=== PATIENT | male | born 1960 | race Hispanic/Latino ===

== ENCOUNTER 2018-08-04 14:44 | Inpatient (IN) | payer OTHER ==
[2018-08-04] MEDS ORDERED: Morphine 4 MG/ML VIAL IV ONE (16:30)
[2018-08-04] MEDS ORDERED: Oxycodone/Acetaminophen 5/325 mg Tab ONE (16:34)
[2018-08-04] MEDS ORDERED: Oxycodone/Acetaminophen 5/325 mg Tab PO STA (16:35)
--- NOTE | 2018-08-04 16:35 | ED PDOC ---
HPI: Abdomen Time Seen by Provider: 08/04/18 15:33 Chief Complaint (Nursing): Abdominal Pain Chief Complaint (Provider): Abdominal Pain History Per: Patient History/Exam Limitations: no limitations Onset/Duration Of Symptoms: Other (x3 weeks) Current Symptoms Are (Timing): Still Present Location Of Pain/Discomfort: RUQ Associated Symptoms: denies: Fever, Nausea, Vomiting, Diarrhea, Constipation Additional Complaint(s): 58 year old male presents to the ED complaining of abdominal pain. Patient reports right upper abdominal pain on and off for 10 years which has become constant over the past 3 weeks. He states he felt a ball in the RUQ in the past few days. Patient has a history of a hiatal hernia. Denies fever, nausea, vomiting, diarrhea, or constipation. He states he is here on business from [place]. His insurance company recommended a physician for him to see on Monday but patient was unable to wait until then secondary to pain. PMD: none provided Past Medical History Reviewed: Historical Data, Nursing Documentation, Vital Signs Vital Signs: Last Vital Signs Temp 99 F 08/04/18 15:27 Pulse 117 H 08/04/18 15:27 Resp 20 08/04/18 15:27 BP 120/70 08/04/18 15:27 Pulse Ox 100 08/04/18 15:27 - Medical History PMH: Diverticulitis, Hiatal Hernia - Surgical History Surgical History: No Surg Hx - Family History Family History: States: Unknown Family Hx - Social History Current smoker - smoking cessation education provided: No Alcohol: None Drugs: Denies - Home Medications Home Medications: Ambulatory Orders Medication Instructions Recorded Amino Acids [Amino Acid] 08/04/18 Tyrosine [l-Tyrosine] 08/04/18 - Allergies Allergies/Adverse Reactions: Allergies Allergy/AdvReac Type Severity Reaction Status Date / Time amoxicillin Allergy SWELLING Verified 08/04/18 18:58 antibiotics Allergy RASH Uncoded 08/04/18 15:27 Review of Systems ROS Statement: Except As Marked, All Systems Reviewed And Found Negative Constitutional: Negative for: Fever Gastrointestinal: Positive for: Abdominal Pain (right upper). Negative for: Nausea, Vomiting, Diarrhea, Constipation Physical Exam - Reviewed Nursing Documentation Reviewed: Yes Vital Signs Reviewed: Yes - Physical Exam Appears: Positive for: Non-toxic, No Acute Distress Head Exam: Positive for: ATRAUMATIC, NORMOCEPHALIC Skin: Positive for: Normal Color, Warm, Dry Eye Exam: Positive for: Normal appearance Neck: Positive for: Normal, Painless ROM Cardiovascular/Chest: Positive for: Regular Rate, Rhythm Respiratory: Positive for: Normal Breath Sounds. Negative for: Wheezing, Respiratory Distress Gastrointestinal/Abdominal: Positive for: Tenderness (of mass in RUQ), Mass (in the RUQ with tenderness). Negative for: Guarding, Rebound Extremity: Positive for: Normal ROM Neurologic/Psych: Positive for: Alert, Oriented. Negative for: Motor/Sensory Deficits - Laboratory Results Result Diagrams: 08/04/18 16:32 08/04/18 16:32 - ECG O2 Sat by Pulse Oximetry: 100 (RA) Pulse Ox Interpretation: Normal Medical Decision Making Medical Decision Making: Initial Impression: Abdominal pain; r/o mass Initial Plan: --CT abd/pelvis --ECG --CMP --Lipase stat --ED urine dipstick --CBC --PTT --Prothrombin time --Morphine 2mg IV --Oxycodone 1 tab PO --Urinalysis CLINICAL HISTORY: Right upper abdominal quadrant pain. TECHNIQUE: Multiple axial, coronal, sagittal CT images were obtained through the abdomen and pelvis after administration of oral and intravenous contrast material. Images were obtained before and after IV contrast administration. Omnipaque 300 95 ml was administered. Total DLP equals 941.83 mGy.cm. COMMENTS: In the right hepatic lobe, note is made of 18 x 14 x 11 cm encapsulated cystic mass demonstrating thick capsule measuring up to 6 mm and multiple internal septations. This may represent a hepatic abscess. There is inflammatory stranding noted in the vicinity. Aspiration biopsy is recommended. There is no intra or extrahepatic biliary ductal dilatation. The spleen is normal. The gallbladder is not identified with certainty. The pancreas is of normal contour and attenuation characteristics. There is no evidence of adrenal mass. Both kidneys demonstrate prompt and equal nephrograms. The kidneys are normal in size, shape, and configuration. There is no evidence of renal or ureteral mass. No renal or ureteral calculi are identified. There is no hydroureter or hydronephrosis. No evidence for appendicitis. There is no bowel wall thickening. No evidence for small or large bowel obstruction. There is no evidence of abdominal ascites or lymphadenopathy. There is scattered diverticulosis noted involving descending and sigmoid colon. There is no evidence of acute diverticulitis. There is no evidence of intrinsic or extrinsic bladder mass. There is no pelvic ascites or lymphadenopathy. The prostate gland is mildly enlarged. There is scarring versus atelectasis noted at the right lung base. There is an irregular nodule noted in the right middle lobe measuring approximately 9 x 7 mm. Consider followup with chest CT. There are no pleural effusions. Grade-1 anterolisthesis of L4 over L5 is present. IMPRESSION: 1. 18 cm right hepatic lobe encapsulated cystic mass demonstrating thick capsule and septations, which may represent a hepatic abscess. Aspiration biopsy is recommended. 2. The gallbladder is not identified with certainty. 3. Scattered diverticulosis involving descending and sigmoid colon. No evidence of acute diverticulitis. 4. Irregular nodule in the right middle lobe. Consider followup with chest CT. Electronically signed on Aug 04, 2018 6:24:40 PM EST by: Alexander Garcia M.D., MONISHA Certified By [facility] Trained MRI and CT Specialist 18:40 Case discussed with vice president corporate communications, will consult. --- Scribe Attestation: Documented by Kendall Avila acting as a scribe for Shanthi Herrera MD. Provider Scribe Attestation: All medical record entries made by the Scribe were at my direction and personally dictated by me. I have reviewed the chart and agree that the record accurately reflects my personal performance of the history, physical exam, medical decision making, and the department course for this patient. I have also personally directed, reviewed, and agree with the discharge instructions and di sposition. Disposition - Clinical Impression Clinical Impression: Hepatic abscess - Patient ED Disposition Is Patient to be Admitted: Yes - Disposition Disposition Time: 18:44 Condition: STABLE - Pt Status Changed To: Hospital Disposition Of: Inpatient - Admit Certification Admit to Inpatient:: After my assessment, the patient will require hospital ization for at least two midnights. This is because of the severity of symptoms shown, intensity of services needed, and/or the medical risk in this patient being treated as an outpatient. - POA Present On Arrival: None
[2018-08-04 16:37] LABS: BASO % 0.4 % (0.0-2.0); EOS % 0.4 % (0.0-4.0); HEMOGLOBIN 12.7 g/dL (12.0-18.0); LYMPH # 0.5 K/uL (1.0-4.3); LYMPH % 9.2 % (20.0-40.0); MEAN CELL VOLUME 85.3 fl (80.0-94.0); MEAN CORPUSCULAR HEMOGLOBIN 28.5 pg (27.0-31.0); MEAN CORPUSCULAR HGB CONC 33.4 g/dL (33.0-37.0); MEAN PLATELET VOLUME 7.3 fl (7.2-11.7); MONO # 0.9 K/uL (0.0-0.8); MONO % 15.7 % (0.0-10.0); NEUT # 4.3 K/uL (1.8-7.0); NEUT % 74.3 % (50.0-75.0); NRBC % 0.1 % (0.0-0.0); PLATELET COUNT 327 K/uL (130-400); RBC 4.44 Mil/uL (4.40-5.90); RED CELL DISTRIBUTION WIDTH 13.9 % (11.5-14.5); WHITE BLOOD COUNT 5.8 K/uL (4.8-10.8)
[2018-08-04 16:40] LABS: INR 1.3; PROTHROMBIN TIME 15.1 Seconds (9.8-13.1)
[2018-08-04 16:42] LABS: PARTIAL THROMBOPLASTIN TIME 31.4 Seconds (25.6-37.1)
[2018-08-04 16:44] LABS: ALBUMIN 3.9 g/dL (3.5-5.0); ALT/SGPT 25 U/L (21-72); AST/SGOT 22 U/L (17-59); BLOOD UREA NITROGEN 13 mg/dl (9-20); CALCIUM 9.5 mg/dL (8.4-10.2); GFR NON-AFRICAN AMERICAN > 60; LIPASE 56 U/L (23-300)
[2018-08-04] MEDS ORDERED: Sodium Chloride 0.9% 50 ML IV ONE (17:07)
[2018-08-04] MEDS ORDERED: Iohexol 300 100 ML IJ ONE (17:07)
[2018-08-04 17:51] LABS: ANISOCYTOSIS SLIGHT; BANDS 2 % (0-2); LARGE PLATELETS PRESENT; LYMPHOCYTE 11 % (20-50); MONOCYTE 13 % (0-10); MYELOCYTE 1 % (0-0); NEUTROPHIL 73 % (42-75); PLATELET ESTIMATE NORMAL (NORMAL); TOTAL CELLS COUNTED 100
[2018-08-04 18:22] LABS: URINE BILIRUBIN NEGATIVE (NEGATIVE); URINE BLOOD NEGATIVE (NEGATIVE); URINE CLARITY CLOUDY (Clear); URINE COLOR YELLOW (YELLOW); URINE GLUCOSE (UA) NEG (Normal); URINE LEUKOCYTE ESTERASE NEG Leu/uL (Negative); URINE PROTEIN 30 mg/dL (NEGATIVE)
[2018-08-04] MEDS: Sodium Chloride 0.9% 1,000 ML IV SCH (19:00)
[2018-08-04] MEDS ORDERED: Piperacillin/Tazobact 3.375 gm Inj IVPB ONE (19:05)
[2018-08-04] MEDS ORDERED: levoFLOXacin 750 mg in D5W 150 ML BAG IVPB SCH (19:45)
--- NOTE | 2018-08-04 19:55 | CP.PCM.CON ---
History of Present Illness - History of Present Illness History of Present Illness: Surgery 58 M w PMH of diverticultitis came with RUQ pain. Pain is dull and localized. PT had discomfort on his RUQ for about 10 years but last 3 weeks it has been worsening and pain is constant. Denies fever, nausea, vomiting, diarrhea, recent illnesses or recent infections. HE also noticed more superficial lump around RUQ 1 week ago. Pt is travelling from [place] and has not travelled outside of . Pt travelled to [place] and [place] in the past. Denies sick contact. Pt had history of multiple attacks of diverticulitis and were treated conservatively. Pt alsp had ho hiatal hernia and reports that he lost 80lbs in 1.5 years. THis was intentional weights loss mainly with diet modification. Pt reports that he had imaging about 1.5 years ago for epigastric pain and showed hiatal hernia. There were no hepatic abscess at that time. He also reports there were lung nodule about 0.5cm at that time. 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 denies sex w men. Review of Systems - Review of Systems Review of Systems: See HPI Past Patient History - Past Social History Alcohol: None Drugs: Denies - GASTROINTESTINAL Hx Diverticulitis: Yes - PSYCHIATRIC Hx Substance Use: No - SURGICAL HISTORY Hx Surgeries: Yes Other/Comment: tracheostomy as a child Meds Allergies/Adverse Reactions: Allergies Allergy/AdvReac Type Severity Reaction Status Date / Time amoxicillin Allergy SWELLING Verified 08/04/18 18:58 antibiotics Allergy RASH Uncoded 08/04/18 15:27 - Medications Medications: Current Medications Sodium Chloride (Sodium Chloride 0.9%) 1,000 mls @ 150 mls/hr IV .Q6H40M ROBYN Stop: 08/05/18 18:52 Last Admin: 08/04/18 19:00 Dose: 150 mls/hr Metronidazole 250 mg/ (Miscellaneous) 50 mls @ 50 mls/hr IVPB Q8 ROBYN; Protocol Levofloxacin/Dextrose (Levaquin 750mg) 750 mg in 150 mls @ 100 mls/hr IVPB DAILY ROBYN Physical Exam - Constitutional Appears: No Acute Distress - Head Exam Head Exam: ATRAUMATIC, NORMAL INSPECTION, NORMOCEPHALIC - Eye Exam Eye Exam: EOMI, Normal appearance, PERRL Pupil Exam: NORMAL ACCOMODATION, PERRL - ENT Exam ENT Exam: Mucous Membranes Moist - Neck Exam Neck exam: Positive for: Normal Inspection - Respiratory Exam Respiratory Exam: NORMAL BREATHING PATTERN - Cardiovascular Exam Cardiovascular Exam: REGULAR RHYTHM - GI/Abdominal Exam GI & Abdominal Exam: Mass, Organomegaly, Soft, Tenderness. absent: Distended, Firm, Guarding, Hernia, Hypoactive Bowel Sounds, Pulsatile Mass, Rebound, Rigid Additional comments: RUQ has organomegali. subcostal margin on the R side has [id number] soft mobile palpable mass. - Exam Exam: NORMAL INSPECTION - Extremities Exam Extremities exam: Positive for: normal inspection - Back Exam Back exam: NORMAL INSPECTION - Neurological Exam Neurological exam: Alert, CN II-XII Intact, Normal Gait, Oriented x3, Reflexes Normal - Psychiatric Exam Psychiatric exam: Normal Affect, Normal Mood - Skin Skin Exam: Dry, Intact, Normal Color, Warm Results - Vital Signs Recent Vital Signs: Last Vital Signs Temp 99 F 08/04/18 15:27 Pulse 117 H 08/04/18 15:27 Resp 20 08/04/18 15:27 BP 120/70 08/04/18 15:27 Pulse Ox 100 08/04/18 18:43 - Labs Result Diagrams: 08/04/18 16:32 08/04/18 16:32 Labs: Laboratory Results - last 24 hr 08/04/18 08/04/18 08/04/18 16:32 16:32 16:32 WBC 5.8 RBC 4.44 Hgb 12.7 Hct 37.9 MCV 85.3 MCH 28.5 MCHC 33.4 RDW 13.9 Plt Count 327 MPV 7.3 Neut % (Auto) 74.3 Lymph % (Auto) 9.2 L Dyer % (Auto) 15.7 H Eos % (Auto) 0.4 Baso % (Auto) 0.4 Neut # (Auto) 4.3 Lymph # (Auto) 0.5 L Dyer # (Auto) 0.9 H Eos # (Auto) 0.0 Baso # (Auto) 0.0 Neutrophils % (Manual) 73 Band Neutrophils % 2 Lymphocytes % (Manual) 11 L Monocytes % (Manual) 13 H Myelocytes % 1 H Platelet Estimate Normal Large Platelets Present Anisocytosis (manual) Slight PT 15.1 H INR 1.3 APTT 31.4 Sodium 137 Potassium 4.3 Chloride 102 Carbon Dioxide 21 L Anion Gap 18 BUN 13 Creatinine 1.0 Est GFR ( Amer) > 60 Est GFR (Non-Af Amer) > 60 Random Glucose 89 Calcium 9.5 Total Bilirubin 1.8 H AST 22 ALT 25 Alkaline Phosphatase 66 Total Protein 7.7 Albumin 3.9 Globulin 3.8 Albumin/Globulin Ratio 1.0 Lipase 56 Urine Color Urine Clarity Urine pH Ur Specific Bumpass Urine Protein Urine Glucose (UA) Urine Ketones Urine Blood Urine Nitrate Urine Bilirubin Urine Urobilinogen Ur Leukocyte Esterase 08/04/18 18:14 WBC RBC Hgb Hct MCV MCH MCHC RDW Plt Count MPV Neut % (Auto) Lymph % (Auto) Dyer % (Auto) Eos % (Auto) Baso % (Auto) Neut # (Auto) Lymph # (Auto) Dyer # (Auto) Eos # (Auto) Baso # (Auto) Neutrophils % (Manual) Band Neutrophils % Lymphocytes % (Manual) Monocytes % (Manual) Myelocytes % Platelet Estimate Large Platelets Anisocytosis (manual) PT INR APTT Sodium Potassium Chloride Carbon Dioxide Anion Gap BUN Creatinine Est GFR ( Amer) Est GFR (Non-Af Amer) Random Glucose Calcium Total Bilirubin AST ALT Alkaline Phosphatase Total Protein Albumin Globulin Albumin/Globulin Ratio Lipase Urine Color Yellow Urine Clarity Cloudy Urine pH 5.0 Ur Specific Bumpass >= 1.030 Urine Protein 30 Urine Glucose (UA) Neg Urine Ketones 80 Urine Blood Negative Urine Nitrate Negative Urine Bilirubin Negative Urine Urobilinogen 4.0 Ur Leukocyte Esterase Neg Assessment & Plan - Assessment and Plan (Free Text) Assessment: Hepatic abscess CT [id number] R hepatic lobe encapsulated cystic septated mass -NPO -IVF -consult IR for drainage of liver abscess -ABX -pain nausea control DW Dr. Ortega
[2018-08-04] MEDS ORDERED: levoFLOXacin 500 mg in D5W 0 MG/0 ML BAG IVPB ONE (19:58)
[2018-08-04] MEDS ORDERED: levoFLOXacin 750 mg in D5W 750 MG/150 ML BAG IVPB ONE (20:04)
[2018-08-04] MEDS: levoFLOXacin 750 mg in D5W 750 MG/150 ML BAG IVPB SCH (20:10)
[2018-08-04] MEDS ORDERED: Oxycodone/Acetaminophen 5/325 mg Tab PO PRN (20:24)
[2018-08-04] MEDS ORDERED: Piperacillin/Tazobact 3.375 GM in Sodium Chloride 0.9% 100 ML IVPB SCH (22:00)
--- NOTE | 2018-08-04 22:29 | CARD ---
APPROVED REPORT Date of service: 08/04/2018 EKG Measurement Heart [id number] <Conclusion> Sinus tachycardia Poor R wave progression Abnormal ECG
[2018-08-05] MEDS: metroNIDAZOLE 500mg/100ml NS 250 MG in Premixed IV 1 EA IVPB SCH ×3 (01:00→17:26)
[2018-08-05] MEDS ORDERED: DiphenhydrAMINE 50 mg/ml Inj IVP PRN (05:04)
--- NOTE | 2018-08-05 07:11 | CP.PCM.PN ---
Subjective - Date & Time of Evaluation Date of Evaluation: 08/05/18 Time of Evaluation: 07:08 - Subjective Subjective: Surgery Pt seen and examined. No acute distress. Pain controlled with percocet. Reports that he had adverse reaction to Flagyl. Denies fever, nausea, vomiting, diarrhea. Objective - Vital Signs/Intake and Output Vital Signs (last 24 hours): Temp Pulse Resp BP Pulse Ox 97.8 F 95 H 20 127/76 96 08/05/18 00:23 08/05/18 00:23 08/05/18 00:23 08/05/18 00:23 08/05/18 00:23 - Medications Medications: Current Medications Acetaminophen (Tylenol 325mg Tab) 650 mg PO Q4 PRN PRN Reason: Fever >100.4 F Diphenhydramine HCl (Benadryl) 50 mg PO Q6 PRN PRN Reason: Itching / Pruritus Last Admin: 08/05/18 05:19 Dose: 50 mg Sodium Chloride (Sodium Chloride 0.9%) 1,000 mls @ 150 mls/hr IV .Q6H40M ROBYN Stop: 08/05/18 18:52 Last Admin: 08/04/18 19:00 Dose: 150 mls/hr Metronidazole 250 mg/ (Miscellaneous) 50 mls @ 50 mls/hr IVPB Q8 ROBYN; Protocol Last Admin: 08/05/18 01:00 Dose: 50 mls/hr Levofloxacin/Dextrose (Levaquin 750mg) 750 mg in 150 mls @ 100 mls/hr IVPB DAILY [facility] Last Admin: 08/04/18 20:10 Dose: 100 mls/hr Ondansetron HCl (Zofran Inj) 4 mg IVP Q6 PRN PRN Reason: Nausea/Vomiting Last Admin: 08/05/18 05:19 Dose: 4 mg Oxycodone/Acetaminophen (Percocet 5/325 Mg Tab) 2 tab PO Q4 PRN PRN Reason: Pain, moderate (4-7) Stop: 08/07/18 20:25 Last Admin: 08/05/18 04:18 Dose: 2 tab - Labs Labs: 08/04/18 16:32 08/04/18 16:32 PT 15.1 Seconds (9.8-13.1) H 08/04/18 16:32 INR 1.3 08/04/18 16:32 APTT 31.4 Seconds (25.6-37.1) 08/04/18 16:32 - Constitutional Appears: No Acute Distress - Head Exam Head Exam: ATRAUMATIC, NORMAL INSPECTION, NORMOCEPHALIC - Eye Exam Eye Exam: EOMI, Normal appearance, PERRL Pupil Exam: NORMAL ACCOMODATION, PERRL - ENT Exam ENT Exam: Mucous Membranes Moist, Normal Exam - Neck Exam Neck Exam: Full ROM, Normal Inspection. absent: Lymphadenopathy - Respiratory Exam Respiratory Exam: NORMAL BREATHING PATTERN - Cardiovascular Exam Cardiovascular Exam: REGULAR RHYTHM - GI/Abdominal Exam GI & Abdominal Exam: Soft, Tenderness, Mass, Normal Bowel Sounds, Organomegaly. absent: Distended, Firm, Guarding, Rigid, Hernia - Exam Exam: NORMAL INSPECTION - Extremities Exam Extremities Exam: Full ROM, Normal Inspection - Back Exam Back Exam: NORMAL INSPECTION - Neurological Exam Neurological Exam: Alert, Awake, Normal Gait, Oriented x3 - Psychiatric Exam Psychiatric exam: Normal Affect, Normal Mood - Skin Skin Exam: Dry, Intact, Normal Color, Warm Assessment and Plan - Assessment and Plan (Free Text) Assessment: liver abscess v cyst -Possible IR drainage on Monday after Dr. Ruelas reviews the CT -Obtain CT from imaging center from [place] [phone] to compare scan that was taken December 2016 -ABX -REgular diet -NPO after midnight -monitor VS -MOnitor for signs of sepsis: WBC WIll DW Dr. Ortega
[2018-08-05] MEDS: Sodium Chloride 0.9% 1,000 ML IV SCH ×2 (09:29→17:20)
--- NOTE | 2018-08-05 10:59 | CT ---
Date of service: 08/04/2018 PROCEDURE: CT Chest without contrast HISTORY: Irregular mass COMPARISON: None available. TECHNIQUE: Contiguous axial images were obtained through the chest without intravenous contrast enhancement. Sagittal and coronal reconstructions were performed. Radiation dose: Total exam DLP = 608.66 mGy-cm. This CT exam was performed using one or more of the following dose reduction techniques: Automated exposure control, adjustment of the mA and/or kV according to patient size, and/or use of iterative reconstruction technique. FINDINGS: LUNGS: No airspace disease bilaterally. Central airways are clear. There is a heavily calcified granuloma identified at the right middle lobe in image 74 with an additional smaller granuloma identified image 70 of the right middle lobe as well. There is a tiny 2 mm noncalcified nodule at the left lower lobe in image 88 posterior laterally. MEDIASTINUM: Thoracic inlet appears unremarkable. Normal sized heart. Main pulmonary artery unremarkable. No vascular congestion. No lymphadenopathy. No aortic atherosclerotic calcification. PLEURA: No pleural fluid. No pneumothorax. BONES: No fracture. No destructive lesion. UPPER ABDOMEN: Large hepatic a capsulated fluid collection better seen in contrast CT performed earlier today 08/04/2018. Please see separate report. Excreted iodinated contrast material is seen in the bilateral kidneys. OTHER FINDINGS: None. IMPRESSION: 1. Right middle lobe calcified granulomata. No CT evidence to suggest pulmonary malignancy at this time. No significant lymphadenopathy. Tiny 2 mm noncalcified nodule left lower lobe. 2. No acute cardiopulmonary changes appreciable grossly. 3. Incidental capsulated cyst at the liver. Please see separate abdomen pelvis CT performed 08/04/2018. Concordant preliminary report from [facility], 08/04/2018.
--- NOTE | 2018-08-05 11:49 | CT ---
Date of service: 08/04/2018 PROCEDURE: CT Abdomen and Pelvis with contrast HISTORY: RUQ mass COMPARISON: None. TECHNIQUE: Contrast dose: Omnipaque 300, 95 cc Radiation dose: Total exam DLP = 941.83 mGy-cm. This CT exam was performed using one or more of the following dose reduction techniques: Automated exposure control, adjustment of the mA and/or kV according to patient size, and/or use of iterative reconstruction technique. FINDINGS: LOWER THORAX: Calcified granulomata right upper lobe. LIVER: There is a large fluid collection appearing encapsulated with a few internal septations inferiorly which is either pre hepatic or exophytic off the right lobe liver exerting significant mass effect on the right lobe. It measures 9.9 x 14.1 x 18.2 cm (transverse by anteroposterior by superoinferior dimensions). Local reactive changes surround this lesion where it abuts fat at this suspicious for an abscess. The gallbladder is not identified independent of this structure and there are no radiodense calculi within the lumen. Alternative diagnosis would be grossly distended gallbladder and cholecystitis though this is definitely not favored given the gross size of this fluid containing structure. The location is also more cephalad than would be expected for gallbladder. GALLBLADDER AND BILE DUCTS: Please see discussion above. No biliary tree dilatation grossly evident. PANCREAS: Unremarkable. No gross lesion or ductal dilatation. SPLEEN: Unremarkable. ADRENALS: Unremarkable. No mass. KIDNEYS AND URETERS: Unremarkable. No hydronephrosis. No solid mass. VASCULATURE: Unremarkable. No aortic aneurysm. No aortic atherosclerotic calcification or mural plaque present. BOWEL: The stomach is collapsed. No large or small bowel obstruction appreciated. Scattered colonic diverticular seen throughout the colon greater the left and right sides nevertheless. No local bowel reactive change appreciated. APPENDIX: Normal appendix. PERITONEUM: Unremarkable. No free fluid. No free air. LYMPH NODES: No significant lymphadenopathy appreciated. BLADDER: Unremarkable. REPRODUCTIVE: Borderline prostate gland enlargement. BONES: Limited levoscoliotic deformity lumbar spine as well as grade 1 anterolisthesis L4-5. OTHER FINDINGS: None. IMPRESSION: 1. 18.2 cm a capsulated fluid collection identified at the right upper quadrant either intrinsic 2 or exophytic off the liver, right lobe. This felt to represent either a sub diaphragmatic or hepatic abscess with inflamed, markedly distended gallbladder not completely excluded but not favored. Clinically correlate as to whether there is a prior cholecystectomy. No biliary tree ductal dilatation appreciated nevertheless. 2. Extensive colonic diverticulosis without diverticulitis. 3. Borderline prostate enlargement. Concordant preliminary report from [facility], 08/04/2018.
[2018-08-05] MEDS: levoFLOXacin 750 mg in D5W 750 MG/150 ML BAG IVPB SCH (12:31)
[2018-08-05] MEDS ORDERED: Oxycodone/Acetaminophen 5/325 mg Tab PO PRN (15:12)
--- NOTE | 2018-08-05 17:16 | CP.PCM.PN ---
Subjective - Date & Time of Evaluation Date of Evaluation: 08/05/18 Time of Evaluation: 17:11 - Subjective Subjective: I D NOTE EMR REVIEWED,STOOLS FOR OVA AND PARASITES PATIENT IS ALLERGIC TO PCN AGREE c TREATMENT c LEVAQUIN AND FLAGYL Objective - Vital Signs/Intake and Output Vital Signs (last 24 hours): Temp Pulse Resp BP Pulse Ox 98.3 F 99 H 20 126/73 96 08/05/18 16:26 08/05/18 16:26 08/05/18 16:26 08/05/18 16:26 08/05/18 16:26 - Medications Medications: Current Medications Acetaminophen (Tylenol 325mg Tab) 650 mg PO Q4 PRN PRN Reason: Fever >100.4 F Diphenhydramine HCl (Benadryl) 50 mg PO Q6 PRN PRN Reason: Itching / Pruritus Last Admin: 08/05/18 11:28 Dose: 50 mg Sodium Chloride (Sodium Chloride 0.9%) 1,000 mls @ 150 mls/hr IV .Q6H40M ROBYN Stop: 08/05/18 18:52 Last Admin: 08/05/18 09:29 Dose: Not Given Metronidazole 250 mg/ (Miscellaneous) 50 mls @ 50 mls/hr IVPB Q8 ROYBN; Protocol Last Admin: 08/05/18 10:45 Dose: 50 mls/hr Levofloxacin/Dextrose (Levaquin 750mg) 750 mg in 150 mls @ 100 mls/hr IVPB DAILY [facility] Last Admin: 08/05/18 12:31 Dose: 100 mls/hr Ondansetron HCl (Zofran Inj) 4 mg IVP Q6 PRN PRN Reason: Nausea/Vomiting Last Admin: 08/05/18 05:19 Dose: 4 mg Oxycodone/Acetaminophen (Percocet 5/325 Mg Tab) 1 tab PO Q4 PRN PRN Reason: Pain, moderate (4-7) Stop: 08/08/18 15:13 Last Admin: 08/05/18 15:13 Dose: 1 tab Oxycodone/Acetaminophen (Percocet 5/325 Mg Tab) 2 tab PO Q4 PRN PRN Reason: Pain, severe (8-10) Stop: 08/07/18 20:25 - Labs Labs: 08/04/18 16:32 08/04/18 16:32 PT 15.1 Seconds (9.8-13.1) H 08/04/18 16:32 INR 1.3 08/04/18 16:32 APTT 31.4 Seconds (25.6-37.1) 08/04/18 16:32
[2018-08-05] MEDS: Oxycodone/Acetaminophen 5/325 mg Tab PO PRN (22:20)
[2018-08-06] MEDS: metroNIDAZOLE 500mg/100ml NS 250 MG in Premixed IV 1 EA IVPB SCH ×4 (00:25→18:34)
[2018-08-06 06:32] LABS: BASO % 0.5 % (0.0-2.0); EOS # 0.1 K/uL (0.0-0.7); EOS % 1.5 % (0.0-4.0); HEMOGLOBIN 11.6 g/dL (12.0-18.0); LYMPH # 0.7 K/uL (1.0-4.3); LYMPH % 11.7 % (20.0-40.0); MEAN CELL VOLUME 86.1 fl (80.0-94.0); MEAN CORPUSCULAR HEMOGLOBIN 28.1 pg (27.0-31.0); MEAN CORPUSCULAR HGB CONC 32.6 g/dL (33.0-37.0); MEAN PLATELET VOLUME 7.9 fl (7.2-11.7); MONO # 1.2 K/uL (0.0-0.8); MONO % 19.1 % (0.0-10.0); NEUT # 4.2 K/uL (1.8-7.0); NEUT % 67.2 % (50.0-75.0); NRBC % 0.1 % (0.0-0.0); RBC 4.14 Mil/uL (4.40-5.90); RED CELL DISTRIBUTION WIDTH 14.1 % (11.5-14.5); WHITE BLOOD COUNT 6.2 K/uL (4.8-10.8)
[2018-08-06 06:45] LABS: ALB/GLOB RATIO 0.9 (1.0-2.1); ALBUMIN 3.2 g/dL (3.5-5.0); ALT/SGPT 18 U/L (21-72); AST/SGOT 16 U/L (17-59); BLOOD UREA NITROGEN 7 mg/dl (9-20); CALCIUM 8.9 mg/dL (8.4-10.2); GFR NON-AFRICAN AMERICAN > 60
--- NOTE | 2018-08-06 07:46 | CP.PCM.PN ---
Subjective - Date & Time of Evaluation Date of Evaluation: 08/06/18 Time of Evaluation: 07:05 - Subjective Subjective: General surgery progress note for Dr. Ortega patient seen and examined this am at bedside. PENG per nursing. he continues to endorse RUQ pain but states that his pain is well controlled on the percocet. Patient understands he is to go for IR drainage of the abscess today. Patient states that adverse reaction to flagyl has stopped and he is no longer experiencing any side effects. Patient otherwise denies ANAND, f/c, n/v, CP, SOB and extremity pain weakness or swelling. Objective - Vital Signs/Intake and Output Vital Signs (last 24 hours): Temp Pulse Resp BP Pulse Ox 98.1 F 95 H 20 116/70 96 08/06/18 01:00 08/06/18 01:00 08/06/18 01:00 08/06/18 01:00 08/06/18 01:00 - Medications Medications: Current Medications Acetaminophen (Tylenol 325mg Tab) 650 mg PO Q4 PRN PRN Reason: Fever >100.4 F Diphenhydramine HCl (Benadryl) 50 mg PO Q6 PRN PRN Reason: Itching / Pruritus Last Admin: 08/06/18 00:25 Dose: 50 mg Metronidazole 250 mg/ (Miscellaneous) 50 mls @ 50 mls/hr IVPB Q8 ROBYN; Protocol Last Admin: 08/06/18 00:25 Dose: 50 mls/hr Levofloxacin/Dextrose (Levaquin 750mg) 750 mg in 150 mls @ 100 mls/hr IVPB DAILY ROBYN Last Admin: 08/05/18 12:31 Dose: 100 mls/hr Ondansetron HCl (Zofran Inj) 4 mg IVP Q6 PRN PRN Reason: Nausea/Vomiting Last Admin: 08/05/18 05:19 Dose: 4 mg Oxycodone/Acetaminophen (Percocet 5/325 Mg Tab) 1 tab PO Q4 PRN PRN Reason: Pain, moderate (4-7) Stop: 08/08/18 15:13 Last Admin: 08/05/18 15:13 Dose: 1 tab Oxycodone/Acetaminophen (Percocet 5/325 Mg Tab) 2 tab PO Q4 PRN PRN Reason: Pain, severe (8-10) Stop: 08/07/18 20:25 Last Admin: 08/05/18 22:20 Dose: 2 tab - Labs Labs: 08/06/18 05:30 08/06/18 05:30 PT 15.1 Seconds (9.8-13.1) H 08/04/18 16:32 INR 1.3 08/04/18 16:32 APTT 31.4 Seconds (25.6-37.1) 08/04/18 16:32 - Constitutional Appears: Well, Non-toxic, No Acute Distress - Head Exam Head Exam: ATRAUMATIC, NORMOCEPHALIC - Eye Exam Eye Exam: EOMI - ENT Exam ENT Exam: Mucous Membranes Moist - Respiratory Exam Respiratory Exam: NORMAL BREATHING PATTERN - Cardiovascular Exam Cardiovascular Exam: REGULAR RHYTHM - GI/Abdominal Exam GI & Abdominal Exam: Guarding (RUQ), Soft, Tenderness (RUQ). absent: Distended - Extremities Exam Extremities Exam: absent: Calf Tenderness, Pedal Edema - Neurological Exam Neurological Exam: Alert, Awake, Oriented x3 - Psychiatric Exam Psychiatric exam: Normal Affect, Normal Mood - Skin Skin Exam: Dry, Intact, Normal Color, Warm Assessment and Plan - Assessment and Plan (Free Text) Assessment: 58 yr old male with Liver abscess Plan: scheduled for IR drainage this AM c/w abx per ID monitor for adverse side effects of flagyl monitor vitals monitor for signs of sepsis d/w Dr. Jordan Berman, PGY 1
[2018-08-06] MEDS: Oxycodone/Acetaminophen 5/325 mg Tab PO PRN (08:36)
[2018-08-06] MEDS: levoFLOXacin 750 mg in D5W 750 MG/150 ML BAG IVPB SCH (08:50)
[2018-08-06] MEDS ORDERED: Midazolam 2 MG/2 ML VIAL ONE (10:49)
--- NOTE | 2018-08-06 11:23 | PCM.SURG1 ---
Surgeon's Initial Post Op Note - Surgeon's Notes Surgeon: Arjun Ruelas MD Nephrology Nurse: NONE Type of Anesthesia: IV Sedation, Local Pre-Operative Diagnosis: Hepatic cyst, pain Operative Findings: US confirms large right hepatic cystic mass. Post-Operative Diagnosis: Hepatic abscess, pain Operation Performed: US guided aspiration of cyst. 1300 cc of cloudy fluid removed and sent for C & S. Specimen/Specimens Removed: 1300 cc Estimated Blood Loss: EBL {In ML}: 0 Blood Products Given: N/A Drains Used: No Drains Post-Op Condition: Fair Date of Surgery/Procedure: 08/06/18 Time of Surgery/Procedure: 11:15
[2018-08-06] MEDS ORDERED: Sodium Chloride 0.9% 250 ML IV ONE (12:10)
--- NOTE | 2018-08-06 18:04 | CP.PCM.PN ---
Subjective - Date & Time of Evaluation Date of Evaluation: 08/06/18 Time of Evaluation: 18:00 - Subjective Subjective: I Feliberto MURPHYRE HAD NEEDLE ASPIRATION DONE TODAY AWAIT CULTURE RESULTS CONTINUE PRESENT ANTIBIOTICS Objective - Vital Signs/Intake and Output Vital Signs (last 24 hours): Temp Pulse Resp BP Pulse Ox 97.8 F 70 18 118/71 96 08/06/18 16:16 08/06/18 16:16 08/06/18 16:16 08/06/18 16:16 08/06/18 16:16 Intake and Output: 08/06/18 08/06/18 06:59 18:59 Intake Total 100 Balance 100 - Medications Medications: Current Medications Acetaminophen (Tylenol 325mg Tab) 650 mg PO Q4 PRN PRN Reason: Fever >100.4 F Diphenhydramine HCl (Benadryl) 50 mg PO Q6 PRN PRN Reason: Itching / Pruritus Last Admin: 08/06/18 08:49 Dose: 50 mg Metronidazole 250 mg/ (Miscellaneous) 50 mls @ 50 mls/hr IVPB Q8 ROBYN; Protocol Last Admin: 08/06/18 08:49 Dose: 50 mls/hr Levofloxacin/Dextrose (Levaquin 750mg) 750 mg in 150 mls @ 100 mls/hr IVPB DAILY ROBYN Last Admin: 08/06/18 08:50 Dose: 100 mls/hr Ondansetron HCl (Zofran Inj) 4 mg IVP Q6 PRN PRN Reason: Nausea/Vomiting Last Admin: 08/05/18 05:19 Dose: 4 mg Oxycodone/Acetaminophen (Percocet 5/325 Mg Tab) 1 tab PO Q4 PRN PRN Reason: Pain, moderate (4-7) Stop: 08/08/18 15:13 Last Admin: 08/05/18 15:13 Dose: 1 tab Oxycodone/Acetaminophen (Percocet 5/325 Mg Tab) 2 tab PO Q4 PRN PRN Reason: Pain, severe (8-10) Stop: 08/07/18 20:25 Last Admin: 08/06/18 08:36 Dose: 2 tab - Labs Labs: 08/06/18 05:30 08/06/18 05:30 PT 15.1 Seconds (9.8-13.1) H 08/04/18 16:32 INR 1.3 08/04/18 16:32 APTT 31.4 Seconds (25.6-37.1) 08/04/18 16:32
[2018-08-07] MEDS: metroNIDAZOLE 500mg/100ml NS 250 MG in Premixed IV 1 EA IVPB SCH ×4 (00:07→17:40)
--- NOTE | 2018-08-07 07:40 | CP.PCM.PN ---
Subjective - Date & Time of Evaluation Date of Evaluation: 08/07/18 Time of Evaluation: 07:24 - Subjective Subjective: Surgery Pt seen and examined. Underwent aspiration yesterday and tolerated it well. Denies fever, nausea, diarrhea, CP , SOB. Ambulates. Objective - Vital Signs/Intake and Output Vital Signs (last 24 hours): Temp Pulse Resp BP Pulse Ox 98 F 81 18 125/76 98 08/07/18 00:33 08/07/18 00:33 08/07/18 00:33 08/07/18 00:33 08/07/18 00:33 - Medications Medications: Current Medications Acetaminophen (Tylenol 325mg Tab) 650 mg PO Q4 PRN PRN Reason: Fever >100.4 F Diphenhydramine HCl (Benadryl) 50 mg PO Q6 PRN PRN Reason: Itching / Pruritus Last Admin: 08/07/18 00:08 Dose: 50 mg Metronidazole 250 mg/ (Miscellaneous) 50 mls @ 50 mls/hr IVPB Q8 ROBYN; Protocol Last Admin: 08/07/18 00:07 Dose: 50 mls/hr Levofloxacin/Dextrose (Levaquin 750mg) 750 mg in 150 mls @ 100 mls/hr IVPB DAILY ROBYN Last Admin: 08/06/18 08:50 Dose: 100 mls/hr Ondansetron HCl (Zofran Inj) 4 mg IVP Q6 PRN PRN Reason: Nausea/Vomiting Last Admin: 08/05/18 05:19 Dose: 4 mg Oxycodone/Acetaminophen (Percocet 5/325 Mg Tab) 1 tab PO Q4 PRN PRN Reason: Pain, moderate (4-7) Stop: 08/08/18 15:13 Last Admin: 08/05/18 15:13 Dose: 1 tab Oxycodone/Acetaminophen (Percocet 5/325 Mg Tab) 2 tab PO Q4 PRN PRN Reason: Pain, severe (8-10) Stop: 08/07/18 20:25 Last Admin: 08/06/18 08:36 Dose: 2 tab - Labs Labs: 08/06/18 05:30 08/06/18 05:30 PT 15.1 Seconds (9.8-13.1) H 08/04/18 16:32 INR 1.3 08/04/18 16:32 APTT 31.4 Seconds (25.6-37.1) 08/04/18 16:32 - Constitutional Appears: In Acute Distress - Head Exam Head Exam: ATRAUMATIC, NORMAL INSPECTION, NORMOCEPHALIC - Eye Exam Eye Exam: EOMI, Normal appearance, PERRL Pupil Exam: NORMAL ACCOMODATION, PERRL - ENT Exam ENT Exam: Mucous Membranes Moist, Normal Exam - Neck Exam Neck Exam: Normal Inspection - Respiratory Exam Respiratory Exam: NORMAL BREATHING PATTERN - Cardiovascular Exam Cardiovascular Exam: REGULAR RHYTHM - GI/Abdominal Exam GI & Abdominal Exam: Soft. absent: Distended, Firm, Guarding, Tenderness Additional comments: Small palpable soft tissue near R subcoastal margin. - Extremities Exam Extremities Exam: Normal Capillary Refill, Normal Inspection - Back Exam Back Exam: NORMAL INSPECTION - Neurological Exam Neurological Exam: Awake, Oriented x3 - Psychiatric Exam Psychiatric exam: Normal Affect, Normal Mood - Skin Skin Exam: Normal Color, Warm Assessment and Plan - Assessment and Plan (Free Text) Assessment: Liver abscess s/p aspiration -ABX -f/u CX -No acute surgical intervention at this time. -follow up at Dr. Ortega office after DC Pt seen and examined w Dr. Ortega
[2018-08-07] MEDS: levoFLOXacin 750 mg in D5W 750 MG/150 ML BAG IVPB SCH (12:22)
[2018-08-07] MEDS: Psyllium Packet PO SCH ×2 (17:38→17:39)
[2018-08-08] MEDS: metroNIDAZOLE 500mg/100ml NS 250 MG in Premixed IV 1 EA IVPB SCH ×3 (00:33→18:10)
[2018-08-08 06:18] LABS: HEMOGLOBIN 11.6 g/dL (12.0-18.0); MEAN CORPUSCULAR HEMOGLOBIN 27.8 pg (27.0-31.0); MEAN CORPUSCULAR HGB CONC 32.8 g/dL (33.0-37.0); RBC 4.18 Mil/uL (4.40-5.90); RED CELL DISTRIBUTION WIDTH 13.9 % (11.5-14.5); WHITE BLOOD COUNT 4.5 K/uL (4.8-10.8)
[2018-08-08 06:43] LABS: BLOOD UREA NITROGEN 4 mg/dl (9-20); CALCIUM 8.9 mg/dL (8.4-10.2); GFR NON-AFRICAN AMERICAN > 60
--- NOTE | 2018-08-08 07:16 | CP.PCM.PN ---
Subjective - Date & Time of Evaluation Date of Evaluation: 08/08/18 Time of Evaluation: 07:00 - Subjective Subjective: General surgery: Dr. Ortega Patient seen and examined this am at bedside. PENG per nursing. Patient states that he has much less pain and is feeling better. He denies ANAND, f/c, n/v, CP, SOB and extremity pain or weakness Objective - Vital Signs/Intake and Output Vital Signs (last 24 hours): Temp Pulse Resp BP Pulse Ox 97.8 F 76 18 112/75 96 08/08/18 01:00 08/08/18 01:00 08/08/18 01:00 08/08/18 01:00 08/08/18 01:00 - Medications Medications: Current Medications Acetaminophen (Tylenol 325mg Tab) 650 mg PO Q4 PRN PRN Reason: Fever >100.4 F Diphenhydramine HCl (Benadryl) 50 mg PO Q6 PRN PRN Reason: Itching / Pruritus Last Admin: 08/08/18 00:33 Dose: 50 mg Metronidazole 250 mg/ (Miscellaneous) 50 mls @ 50 mls/hr IVPB Q8 ROBYN; Protocol Last Admin: 08/08/18 00:33 Dose: 50 mls/hr Levofloxacin/Dextrose (Levaquin 750mg) 750 mg in 150 mls @ 100 mls/hr IVPB DAILY ROBYN Last Admin: 08/07/18 12:22 Dose: 100 mls/hr Ondansetron HCl (Zofran Inj) 4 mg IVP Q6 PRN PRN Reason: Nausea/Vomiting Last Admin: 08/05/18 05:19 Dose: 4 mg Oxycodone/Acetaminophen (Percocet 5/325 Mg Tab) 1 tab PO Q4 PRN PRN Reason: Pain, moderate (4-7) Stop: 08/08/18 15:13 Last Admin: 08/05/18 15:13 Dose: 1 tab Psyllium Hydrophilic Mucilloid (Hydrocil Instant) 1 pkt PO BID ROBYN Last Admin: 08/07/18 17:39 Dose: Not Given - Labs Labs: 08/08/18 05:40 08/08/18 05:40 PT 15.1 Seconds (9.8-13.1) H 08/04/18 16:32 INR 1.3 08/04/18 16:32 APTT 31.4 Seconds (25.6-37.1) 08/04/18 16:32 - Constitutional Appears: Well, Non-toxic, No Acute Distress - Head Exam Head Exam: ATRAUMATIC, NORMOCEPHALIC - Eye Exam Eye Exam: EOMI - ENT Exam ENT Exam: Mucous Membranes Moist - Respiratory Exam Respiratory Exam: NORMAL BREATHING PATTERN - Cardiovascular Exam Cardiovascular Exam: REGULAR RHYTHM - GI/Abdominal Exam GI & Abdominal Exam: Soft, Tenderness (RUQ mild). absent: Distended, Guarding Additional comments: dressing from drainage site removed, area CDI with no fluid drainage or erythema - Extremities Exam Extremities Exam: absent: Calf Tenderness, Pedal Edema - Neurological Exam Neurological Exam: Alert, Awake, Oriented x3 - Psychiatric Exam Psychiatric exam: Normal Affect, Normal Mood - Skin Skin Exam: Dry, Intact, Normal Color, Warm Assessment and Plan - Assessment and Plan (Free Text) Assessment: 58 yr old male with large hepatic abscess s/p IR drainage POD2 Plan: abx per ID recs repeat imaging to evaluate for reaccumulation may need drain placement if reaccumalation d/w Dr. Jordan Berman, PGY 1
[2018-08-08] MEDS ORDERED: Potassium Chloride 20 mEq ER Tab PO ONE (09:30)
[2018-08-08] MEDS: levoFLOXacin 750 mg in D5W 750 MG/150 ML BAG IVPB SCH (10:39)
[2018-08-08] MEDS: Psyllium Packet PO SCH ×2 (10:42→17:19)
[2018-08-08] MEDS ORDERED: Iohexol 240 (50 ml) PO ONE (11:46)
[2018-08-08] MEDS ORDERED: Iohexol 300 100 ML IJ ONE (14:22)
[2018-08-08] MEDS ORDERED: Sodium Chloride 0.9% 50 ML IV ONE (14:23)
--- NOTE | 2018-08-08 15:01 | CT ---
PROCEDURE: Date of procedure: 08/06/2018 Procedure: 1. Liver abscess drainage with ultrasound guidance, CPT 60497 Medications: The patient received IV sedation administered by anesthesiologist HISTORY: Liver abscess TECHNIQUE: Following informed consent procedure time-out, limited ultrasound of the liver showed a complex collection consistent with abscess seen on CT scan. After the patient abdomen was prepped and draped in the usual sterile fashion, the skin was anesthetized with 1 % lidocaine. A 5 Kenyan WeMontage catheter was advanced under ultrasound guidance into the collection. 1 liter of purulent drainage was aspirated. A dressing was applied. IMPRESSION: Ultrasound-guided abscess drainage with aspiration of 1 liter of purulent drainage.
[2018-08-08] MEDS ORDERED: Lidocaine 1% Inj (20ml) ONE (15:25)
[2018-08-08] MEDS ORDERED: Sodium Chloride 0.9% 100 ML ONE (15:26)
--- NOTE | 2018-08-08 15:28 | CT ---
Date of service: 08/08/2018 PROCEDURE: CT Abdomen and Pelvis with contrast HISTORY: evaluate for hepatic abscess reaccumulation COMPARISON: 08/04/2018. TECHNIQUE: CT scan of the abdomen and pelvis was performed after administration of intravenous contrast. Oral contrast was not administered. Coronal and sagittal reformatted images were obtained. Contrast dose: Radiation dose: Total exam DLP = 928.82 mGy-cm. This CT exam was performed using one or more of the following dose reduction techniques: Automated exposure control, adjustment of the mA and/or kV according to patient size, and/or use of iterative reconstruction technique. FINDINGS: LOWER THORAX: There is a 11 mm calcified granuloma in the right lung base. The visualized left lung is clear. LIVER: Normal in size with homogeneous enhancement. No gross lesion or ductal dilatation. There is redemonstration of 813.8 x 9.1 x 17.7 cm well-circumscribed and capsulated hypoechoic collection with peripheral rim enhancement anterolateral to the right hepatic lobe. There is mass effect on the right anterior inferior hepatic lobe. GALLBLADDER AND BILE DUCTS: Not visualized. PANCREAS: Normal in size with homogeneous enhancement. No gross lesion or ductal dilatation. SPLEEN: Normal in size and appearance. ADRENALS: No discrete nodule. KIDNEYS AND URETERS: Normal in size with homogeneous enhancement. No hydronephrosis. No solid mass. VASCULATURE: No aortic aneurysm. BOWEL: Evaluation of the bowel is limited in the absence of oral contrast. The small bowel loops are normal in caliber. There is large amount of stool in the ascending colon and moderate amount of stool in the transverse and sigmoid colon. There is extensive left colonic diverticulosis without CT evidence for acute diverticulitis. APPENDIX: Normal appendix. PERITONEUM: No free fluid. No free air. LYMPH NODES: No enlarged lymph nodes. BLADDER: Well distended and normal in appearance. REPRODUCTIVE: Mild enlargement of the prostate gland with median lobe hypertrophy indenting on the base of the urinary bladder. BONES: No acute fracture. Within normal limits for the patient's age. OTHER FINDINGS: There is a small sliding hiatal hernia. There is subcutaneous fat stranding in the anterolateral abdominal wall in the right upper quadrant which may be reactive. There is an apparent 3.4 x 3.1 cm hypodense area in anterior chest wall overlying the abscess. IMPRESSION: 1. Little interval change in size of large abscess anterior lateral to the right hepatic lobe. 2. 3.4 x 3.1 cm phlegmon/developing abscess in the anterior lateral chest wall overlying the known large abscess.
--- NOTE | 2018-08-08 15:47 | PCM.SURG1 ---
Surgeon's Initial Post Op Note - Surgeon's Notes Surgeon: Arjun Ruelas MD Cadastral Engineer: NONE Type of Anesthesia: Local Pre-Operative Diagnosis: Perihepatic abscess Operative Findings: US showed complex abdominal collection consistent with abscess seen on CT Post-Operative Diagnosis: Perihepatic abscess Operation Performed: US guided placement of an 8 fr pigtail drainage catheter in abdominal abscess Specimen/Specimens Removed: none Estimated Blood Loss: EBL {In ML}: 1 Blood Products Given: N/A Drains Used: Akash Piña Post-Op Condition: Fair Date of Surgery/Procedure: 08/08/18 Time of Surgery/Procedure: 15:40
[2018-08-08] MEDS ORDERED: Oxycodone/Acetaminophen 5/325 mg Tab ONE (16:51)
[2018-08-08] MEDS ORDERED: Oxycodone/Acetaminophen 5/325 mg Tab PO PRN (17:00)
[2018-08-08] MEDS: Oxycodone/Acetaminophen 5/325 mg Tab PO PRN (22:09)
[2018-08-09] MEDS: metroNIDAZOLE 500mg/100ml NS 250 MG in Premixed IV 1 EA IVPB SCH ×3 (00:12→17:18)
--- NOTE | 2018-08-09 08:52 | CP.PCM.PN ---
Subjective - Date & Time of Evaluation Date of Evaluation: 08/09/18 Time of Evaluation: 08:50 - Subjective Subjective: Surgery: Dr. Ortega Pt seen and examined. No acute events overnight. Had IR drainage again yesterday. Pt has no complaints this AM. Objective - Vital Signs/Intake and Output Vital Signs (last 24 hours): Temp Pulse Resp BP Pulse Ox 97.5 F L 78 18 123/81 97 08/09/18 02:32 08/09/18 02:32 08/09/18 02:32 08/09/18 02:32 08/09/18 02:32 Intake and Output: 08/09/18 08/09/18 06:59 18:59 Intake Total 450 Output Total 780 Balance -330 - Medications Medications: Current Medications Acetaminophen (Tylenol 325mg Tab) 650 mg PO Q4 PRN PRN Reason: Fever >100.4 F Diphenhydramine HCl (Benadryl) 50 mg PO Q6 PRN PRN Reason: Itching / Pruritus Last Admin: 08/08/18 17:22 Dose: 50 mg Metronidazole 250 mg/ (Miscellaneous) 50 mls @ 50 mls/hr IVPB Q8 ROBYN; Protocol Last Admin: 08/09/18 00:12 Dose: 50 mls/hr Levofloxacin/Dextrose (Levaquin 750mg) 750 mg in 150 mls @ 100 mls/hr IVPB DAILY ROBYN Last Admin: 08/08/18 10:39 Dose: 100 mls/hr Ondansetron HCl (Zofran Inj) 4 mg IVP Q6 PRN PRN Reason: Nausea/Vomiting Last Admin: 08/05/18 05:19 Dose: 4 mg Oxycodone/Acetaminophen (Percocet 5/325 Mg Tab) 2 tab PO Q4 PRN PRN Reason: Pain, moderate (4-7) Stop: 08/11/18 17:01 Last Admin: 08/08/18 22:09 Dose: 2 tab Psyllium Hydrophilic Mucilloid (Hydrocil Instant) 1 pkt PO BID ROBYN Last Admin: 08/08/18 17:19 Dose: Not Given - Labs Labs: 08/08/18 05:40 08/08/18 05:40 PT 15.1 Seconds (9.8-13.1) H 08/04/18 16:32 INR 1.3 08/04/18 16:32 APTT 31.4 Seconds (25.6-37.1) 08/04/18 16:32 - Constitutional Appears: Non-toxic, No Acute Distress - Head Exam Head Exam: ATRAUMATIC, NORMOCEPHALIC - Eye Exam Eye Exam: EOMI - ENT Exam ENT Exam: Mucous Membranes Moist - Neck Exam Neck Exam: Full ROM - Respiratory Exam Respiratory Exam: NORMAL BREATHING PATTERN. absent: Accessory Muscle Use, Respiratory Distress - Cardiovascular Exam Cardiovascular Exam: REGULAR RHYTHM - GI/Abdominal Exam GI & Abdominal Exam: Soft. absent: Distended, Firm, Guarding, Rigid, Tenderness Additional comments: IR drain RUQ - Neurological Exam Neurological Exam: Alert, Awake, Oriented x3 - Psychiatric Exam Psychiatric exam: Normal Affect, Normal Mood - Skin Skin Exam: Dry, Normal Color, Warm Assessment and Plan - Assessment and Plan (Free Text) Assessment: 58M w. hepatic abscess, s/p IR drainage -IR drain: 75cc/12hr purulent/sanguinous -will plan for operative drainage tomorrow -NPO at [place] -c/w abx -d/w attending Zemaitis PGY4
[2018-08-09] MEDS: Psyllium Packet PO SCH ×2 (09:02→17:23)
[2018-08-09] MEDS: levoFLOXacin 750 mg in D5W 750 MG/150 ML BAG IVPB SCH (09:52)
[2018-08-10] MEDS: metroNIDAZOLE 500mg/100ml NS 250 MG in Premixed IV 1 EA IVPB SCH ×3 (00:05→17:00)
[2018-08-10] MEDS ORDERED: Sodium Chloride 0.9% 1,000 ML IV SCH (06:30)
[2018-08-10 06:32] LABS: HEMOGLOBIN 12.3 g/dL (12.0-18.0); MEAN CORPUSCULAR HGB CONC 33.4 g/dL (33.0-37.0); RBC 4.23 Mil/uL (4.40-5.90); RED CELL DISTRIBUTION WIDTH 14.4 % (11.5-14.5); WHITE BLOOD COUNT 5.8 K/uL (4.8-10.8)
[2018-08-10 07:23] LABS: BLOOD UREA NITROGEN 5 mg/dl (9-20)
[2018-08-10 07:24] LABS: ALB/GLOB RATIO 0.8 (1.0-2.1); ALT/SGPT 24 U/L (21-72); AST/SGOT 43 U/L (17-59); GFR NON-AFRICAN AMERICAN > 60
[2018-08-10] MEDS ORDERED: Potassium Ch 20mEq in D5-1/2NS 1,000 ML IV SCH (08:15)
[2018-08-10] MEDS: Psyllium Packet PO SCH ×2 (08:52→16:07)
[2018-08-10 09:49] LABS: INR 1.3; PROTHROMBIN TIME 14.9 Seconds (9.8-13.1)
[2018-08-10 09:51] LABS: PARTIAL THROMBOPLASTIN TIME 33.6 Seconds (25.6-37.1)
[2018-08-10] MEDS: levoFLOXacin 750 mg in D5W 750 MG/150 ML BAG IVPB SCH (10:02)
--- NOTE | 2018-08-10 14:03 | RAD ---
PROCEDURE: Date of procedure: 08/08/2018 Procedure: Perihepatic abscess drainage with ultrasound guidance, CPT 80199 Medications: 8 cc Lidocaine 2% HISTORY: Persistent large perihepatic abscess. TECHNIQUE: Following informed consent procedure time-out, limited ultrasound of the right upper abdomen showed a complex collection consistent with abscess seen on CT scan. After the patient abdomen was prepped and draped in the usual sterile fashion, the skin was anesthetized with 1 % lidocaine. A 5 Bulgarian Yueh catheter was advanced under ultrasound guidance into the collection. An 035 guidewire was advanced through the Yueh catheter into the collection. An 8 Bulgarian pigtail drainage catheter was advanced over wire and position within the abscess. The pigtail drainage catheter was then attached to a ZULEYMA drain. IMPRESSION: Ultrasound-guided abscess drainage with placement of an 8 Bulgarian pigtail drainage catheter.
[2018-08-10] MEDS ORDERED: Propofol 10 mg/ml Inj (20 ML) ONE (15:31)
[2018-08-10] MEDS ORDERED: Midazolam 2 MG/2 ML VIAL ONE (15:31)
[2018-08-10] MEDS ORDERED: Lactated Ringer's 1,000 ML IV ONE ×4 (15:42→20:26)
[2018-08-10 15:43] VITALS: BMI 31.2
[2018-08-10] MEDS ORDERED: Rocuronium 10 mg/ml (5 ml) ONE ×3 (15:55→18:16)
[2018-08-10] MEDS ORDERED: Sodium Chloride 0.9% 1,000 ML IV ONE ×2 (16:00→18:00)
[2018-08-10] MEDS ORDERED: Bupivacaine 0.25%-Epinephrine 1:200,000 (30 ml) Inj ONE (16:09)
[2018-08-10] MEDS ORDERED: Sevoflurane - Inhalation Anesthetic Liq (250 ml) ONE (16:12)
[2018-08-10] MEDS ORDERED: Cellulose Hemostat 2X3 Sheet TP ONE ×2 (16:47→17:06)
[2018-08-10] MEDS ORDERED: Neostigmine 1:1000 (1 mg/ml) Inj ONE (18:53)
[2018-08-10] MEDS ORDERED: Lactated Ringer's 1,000 ML IV SCH (19:15)
--- NOTE | 2018-08-10 19:28 | PCM.SURG1 ---
Surgeon's Initial Post Op Note - Surgeon's Notes Surgeon: Dr. Ortega Instructor Private: Genia Gamble PGY3 Type of Anesthesia: General Endo, Block Regional Anesthesia Administered By: Dr. Cervantes Pre-Operative Diagnosis: Liver abscess Operative Findings: THick necrotic liver abscess cavity adhesed against R abdominal wall, pigtail drain inside abscess cavity, [id number] 3 gallstones, No separate gallbladder was seen. Post-Operative Diagnosis: liver Abscess likely secondary to infected gallbladder erosion Operation Performed: exploratory laparotomy w harper incision, lysis of adhesion, partial deroofing of the liver abscess cavity, omentopexy over the opening of the liver abscess cavity. removal of the gallstones inside abscess cavity. Drains placement. Specimen/Specimens Removed: abscess cavity, [id number], gallstones [id number] three of them. Estimated Blood Loss: EBL {In ML}: 100 Blood Products Given: PRBC Drains Used: Akash Piña Post-Op Condition: Fair Date of Surgery/Procedure: 08/10/18 Time of Surgery/Procedure: 19:32
[2018-08-11] MEDS: metroNIDAZOLE 500mg/100ml NS 250 MG in Premixed IV 1 EA IVPB SCH ×3 (01:14→16:58)
[2018-08-11 07:05] LABS: BASO % 0.1 % (0.0-2.0); EOS % 0.1 % (0.0-4.0); HEMOGLOBIN 12.9 g/dL (12.0-18.0); LYMPH # 0.6 K/uL (1.0-4.3); LYMPH % 3.7 % (20.0-40.0); MEAN CELL VOLUME 85.8 fl (80.0-94.0); MEAN CORPUSCULAR HEMOGLOBIN 28.7 pg (27.0-31.0); MEAN CORPUSCULAR HGB CONC 33.5 g/dL (33.0-37.0); MEAN PLATELET VOLUME 7.4 fl (7.2-11.7); MONO # 0.7 K/uL (0.0-0.8); MONO % 4.6 % (0.0-10.0); NEUT # 14.7 K/uL (1.8-7.0); NEUT % 91.5 % (50.0-75.0); PLATELET COUNT 337 K/uL (130-400); RBC 4.48 Mil/uL (4.40-5.90); RED CELL DISTRIBUTION WIDTH 14.5 % (11.5-14.5)
--- NOTE | 2018-08-11 07:50 | CP.PCM.PN ---
Subjective - Date & Time of Evaluation Date of Evaluation: 08/11/18 Time of Evaluation: 06:55 - Subjective Subjective: general surgery progress note: Dr. Ortega Patient seen and examined this am at bedside. ERASTOO per nursing. drain site and incision site dressings changed at bedside. 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 He denies ANAND, f/c, n/v, CP, SOB and extremity pain or weakness. Overnight outputs are pigtail 15, left ZULEYMA 20, right ZULEYMA 10, UOP since surgery 450 Objective - Vital Signs/Intake and Output Vital Signs (last 24 hours): Temp Pulse Resp BP Pulse Ox 97.5 F L 77 18 115/75 97 08/11/18 00:15 08/11/18 00:15 08/11/18 00:15 08/11/18 00:15 08/11/18 00:15 Intake and Output: 08/11/18 08/11/18 06:59 18:59 Intake Total 1890 Output Total 880 Balance 1010 - Medications Medications: Current Medications Acetaminophen (Tylenol 325mg Tab) 650 mg PO Q4 PRN PRN Reason: Fever >100.4 F Diphenhydramine HCl (Benadryl) 50 mg PO Q6 PRN PRN Reason: Itching / Pruritus Last Admin: 08/08/18 17:22 Dose: 50 mg Hydromorphone HCl (Dilaudid 0.2 Mg/Ml Panel Wirer) 0 mg IV PRN PRN; Protocol PRN Reason: Pain, moderate (4-7) Stop: 08/12/18 19:15 Last Admin: 08/10/18 20:22 Dose: 0.2 mg Metronidazole 250 mg/ (Miscellaneous) 50 mls @ 50 mls/hr IVPB Q8 ROBYN; Protocol Last Admin: 08/11/18 01:14 Dose: 50 mls/hr Levofloxacin/Dextrose (Levaquin 750mg) 750 mg in 150 mls @ 100 mls/hr IVPB DAILY ROBYN Last Admin: 08/10/18 10:02 Dose: 100 mls/hr Potassium Chloride/Dextrose/Sod Cl (Potassium Chl 20 Meq In D5-1/2ns) 1,000 mls @ 125 mls/hr IV .Q8H ROBYN Stop: 08/11/18 08:04 Last Admin: 08/10/18 11:33 Dose: 125 mls/hr Lactated Ringer's (Lactated Ringer's) 1,000 mls @ 100 mls/hr IV .Q10H [facility] Ondansetron HCl (Zofran Inj) 4 mg IVP Q6 PRN PRN Reason: Nausea/Vomiting Last Admin: 08/10/18 23:23 Dose: 4 mg Oxycodone/Acetaminophen (Percocet 5/325 Mg Tab) 2 tab PO Q4 PRN PRN Reason: Pain, moderate (4-7) Stop: 08/11/18 17:01 Last Admin: 08/08/18 22:09 Dose: 2 tab Psyllium Hydrophilic Mucilloid (Hydrocil Instant) 1 pkt PO BID ROBYN Last Admin: 08/10/18 16:07 Dose: Not Given - Labs Labs: 08/11/18 05:30 08/10/18 05:40 PT 14.9 Seconds (9.8-13.1) H 08/10/18 09:34 INR 1.3 08/10/18 09:34 APTT 33.6 Seconds (25.6-37.1) 08/10/18 09:34 - Constitutional Appears: Well, Non-toxic, No Acute Distress - Head Exam Head Exam: ATRAUMATIC, NORMOCEPHALIC - Eye Exam Eye Exam: EOMI - ENT Exam ENT Exam: Mucous Membranes Moist - Respiratory Exam Respiratory Exam: NORMAL BREATHING PATTERN - Cardiovascular Exam Cardiovascular Exam: REGULAR RHYTHM. absent: Tachycardia - GI/Abdominal Exam GI & Abdominal Exam: Soft, Tenderness (appropriate incisional tenderness). absent: Distended, Guarding Additional comments: drain sites clean dry and intact, incision site clean, packing and jarett in place, serosanguinous fluid on dressings, dressings changed this am at bedside. - Extremities Exam Extremities Exam: absent: Calf Tenderness, Pedal Edema - Neurological Exam Neurological Exam: Alert, Awake, Oriented x3 - Psychiatric Exam Psychiatric exam: Normal Affect, Normal Mood - Skin Skin Exam: Dry, Normal Color, Warm Additional comments: drain sites clean dry and intact, incision site clean, packing and jarett in place, serosanguinous fluid on dressings, dressings changed this am at bedside. Assessment and Plan - Assessment and Plan (Free Text) Assessment: 58 yr old male with larger hepatic abscess s/p abscess unroofing debridement and omentopexy POD 1 Plan: continue IV abx begin LVX encourage OOBTC and IS use replete electrolytes as needed monitor drain output packing to be changed tomorrow ADAT will d/w Dr Jordan Berman, PGY 1
[2018-08-11 07:56] LABS: ALB/GLOB RATIO 0.8 (1.0-2.1); ALBUMIN 2.7 g/dL (3.5-5.0); ALT/SGPT 38 U/L (21-72); AST/SGOT 57 U/L (17-59); BLOOD UREA NITROGEN 5 mg/dl (9-20); CALCIUM 8.2 mg/dL (8.4-10.2); GFR NON-AFRICAN AMERICAN > 60
[2018-08-11] MEDS: Psyllium Packet PO SCH ×2 (09:42→16:59)
[2018-08-11 10:54] LABS: ANISOCYTOSIS SLIGHT; BANDS 2 % (0-2); LARGE PLATELETS PRESENT; LYMPHOCYTE 6 % (20-50); MONOCYTE 5 % (0-10); MYELOCYTE 1 % (0-0); NEUTROPHIL 86 % (42-75); PLATELET ESTIMATE NORMAL (NORMAL); TOTAL CELLS COUNTED 100
[2018-08-11 10:55] LABS: TEARDROP CELLS SLIGHT
[2018-08-11] MEDS: Oxycodone/Acetaminophen 5/325 mg Tab PO PRN ×2 (11:39→15:25)
[2018-08-11] MEDS: levoFLOXacin 750 mg in D5W 750 MG/150 ML BAG IVPB SCH (11:42)
[2018-08-11] MEDS: Enoxaparin 40 mg Syringe SC SCH (11:57)
[2018-08-11 17:47] LABS: HEPATITIS B SURFACE AG Negative (NEGATIVE)
[2018-08-11 17:52] LABS: HEPATITIS A IGM NEGATIVE (NEGATIVE); HEPATITIS B CORE AB NEGATIVE (NEGATIVE)
[2018-08-11 18:04] LABS: HEPATITIS C ANTIBODY NEGATIVE (NEGATIVE)
[2018-08-11] MEDS: Dextrose 5%/Lactated Ringer's 1,000 ML IV SCH (18:18)
--- NOTE | 2018-08-12 00:11 | CP.PCM.HP ---
History of Present Illness - History of Present Illness History of Present Illness: This is a 58 y/o male with hx of hiatal hernia and diverticulitis was admitted for recurrent RUQ pain which has worsened in the past 3 weeks. He claims that he has been having RUQ pain for about ten years. He denies any trauma to the area. he had an imaging about a year ago which showed only hiatal hernia. In the past three weeks he noted a lump in the RUQ and noted associated increasing dull discomfort in the area. He has not travelled outside of the country. He came to the [facility] from [place] for a business meet. he had travelled to [place] and [place] in the past. He had recently lost about 80pounds but intentionally as he changed his diet and got more involved with exercises in the gym He denies fever. Has no change in stool color or form. He has no change in appetite. Has no episode of hepatitis CT scan showed possible liver abscess or abscess within the gallbladder area. 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 Meds Allergies/Adverse Reactions: Allergies Allergy/AdvReac Type Severity Reaction Status Date / Time amoxicillin Allergy SWELLING Verified 08/04/18 18:58 antibiotics Allergy RASH Uncoded 08/04/18 15:27 Physical Exam - Head Exam Head Exam: NORMAL INSPECTION - Eye Exam Eye Exam: Normal appearance - ENT Exam ENT Exam: Mucous Membranes Moist - Respiratory Exam Respiratory Exam: Clear to Auscultation Bilateral - Cardiovascular Exam Cardiovascular Exam: REGULAR RHYTHM - GI/Abdominal Exam GI & Abdominal Exam: Distended, Tenderness Results - Vital Signs Recent Vital Signs: Last Vital Signs Temp 97.5 F L 08/11/18 21:04 Pulse 77 08/11/18 21:04 Resp 18 08/11/18 21:04 BP 126/81 08/11/18 21:04 Pulse Ox 96 11/24/18 21:04 - Labs Result Diagrams: 08/11/18 05:30 08/11/18 05:30 Labs: Laboratory Results - last 24 hr 08/10/18 08/11/18 08/11/18 20:10 05:30 05:30 WBC 16.0 H D RBC 4.48 Hgb 12.9 Hct 38.5 MCV 85.8 MCH 28.7 MCHC 33.5 RDW 14.5 Plt Count 337 MPV 7.4 Neut % (Auto) 91.5 H Lymph % (Auto) 3.7 L Craven % (Auto) 4.6 Eos % (Auto) 0.1 Baso % (Auto) 0.1 Neut # (Auto) 14.7 H Lymph # (Auto) 0.6 L Craven # (Auto) 0.7 Eos # (Auto) 0.0 Baso # (Auto) 0.0 Neutrophils % (Manual) 86 H Band Neutrophils % 2 Lymphocytes % (Manual) 6 L Monocytes % (Manual) 5 Myelocytes % 1 H Platelet Estimate Normal Large Platelets Present Anisocytosis (manual) Slight Tear Drop Cells Slight Sodium 140 Potassium 4.2 Chloride 108 H Carbon Dioxide 25 Anion Gap 11 BUN 5 L Creatinine 0.7 L Est GFR ( Amer) > 60 Est GFR (Non-Af Amer) > 60 Random Glucose 168 H Calcium 8.2 L Total Bilirubin 0.6 AST 57 ALT 38 Alkaline Phosphatase 50 Total Protein 6.1 L Albumin 2.7 L Globulin 3.4 Albumin/Globulin Ratio 0.8 L Hepatitis A IgM Ab Negative Hep Bs Antigen Negative Hep B Core IgM Ab Negative Hepatitis C Antibody Negative Assessment & Plan (1) Hepatic abscess Status: Acute (2) Hiatal hernia Status: Acute - Assessment and Plan (Free Text) Plan: NPO surgical eval and follow up IV antibiotics ID eval.
--- NOTE | 2018-08-12 00:23 | CP.PCM.PN ---
Subjective - Date & Time of Evaluation Date of Evaluation: 08/06/18 Time of Evaluation: 10:00 - Subjective Subjective: Patient remains stable For aspiration thru interventional radiology today Has no fever CBC is stable No rise in WBC noted, Objective - Vital Signs/Intake and Output Vital Signs (last 24 hours): Temp Pulse Resp BP Pulse Ox 97.5 F L 77 18 126/81 96 08/11/18 21:04 08/11/18 21:04 08/11/18 21:04 08/11/18 21:04 08/11/18 21:04 Intake and Output: 08/11/18 08/12/18 18:59 06:59 Output Total 65 Balance -65 - Medications Medications: Current Medications Acetaminophen (Tylenol 325mg Tab) 650 mg PO Q4 PRN PRN Reason: Fever >100.4 F Diphenhydramine HCl (Benadryl) 50 mg PO Q6 PRN PRN Reason: Itching / Pruritus Last Admin: 08/08/18 17:22 Dose: 50 mg Enoxaparin Sodium (Lovenox) 40 mg SC DAILY [facility]; Protocol Last Admin: 08/11/18 11:57 Dose: 40 mg Metronidazole 250 mg/ (Miscellaneous) 50 mls @ 50 mls/hr IVPB Q8 [facility]; Protocol Last Admin: 08/11/18 16:58 Dose: 50 mls/hr Levofloxacin/Dextrose (Levaquin 750mg) 750 mg in 150 mls @ 100 mls/hr IVPB DAILY [facility] Last Admin: 08/11/18 11:42 Dose: 100 mls/hr Dextrose/Lactated Ringer's (Dextrose 5%/Lactated Ringer's) 1,000 mls @ 75 mls/hr IV .[id number] [facility] Stop: 08/12/18 14:22 Last Admin: 08/11/18 18:18 Dose: 75 mls/hr Ketorolac Tromethamine (Toradol) 30 mg IVP Q6 PRN PRN Reason: Pain, Mild (1-3) Last Admin: 08/12/18 00:16 Dose: 30 mg Ondansetron HCl (Zofran Inj) 4 mg IVP Q4 PRN PRN Reason: Nausea/Vomiting Pantoprazole Sodium (Protonix Inj) 40 mg IVP DAILY [facility] Last Admin: 08/11/18 14:50 Dose: 40 mg Psyllium Hydrophilic Mucilloid (Hydrocil Instant) 1 pkt PO BID [facility] Last Admin: 08/11/18 16:59 Dose: Not Given - Labs Labs: 08/11/18 05:30 08/11/18 05:30 PT 14.9 Seconds (9.8-13.1) H 08/10/18 09:34 INR 1.3 08/10/18 09:34 APTT 33.6 Seconds (25.6-37.1) 08/10/18 09:34 - Head Exam Head Exam: NORMAL INSPECTION - Eye Exam Eye Exam: Normal appearance - Respiratory Exam Respiratory Exam: Clear to Ausculation Bilateral - Cardiovascular Exam Cardiovascular Exam: REGULAR RHYTHM - GI/Abdominal Exam GI & Abdominal Exam: Tenderness, Normal Bowel Sounds Assessment and Plan (1) Hepatic abscess Status: Acute (2) Hiatal hernia Status: Acute - Assessment and Plan (Free Text) Plan: For aspiration biopsy of abscess cont meds apin meds IV antibiotics. Levaquin and metronidazole
[2018-08-12] MEDS: metroNIDAZOLE 500mg/100ml NS 250 MG in Premixed IV 1 EA IVPB SCH ×3 (00:27→16:23)
--- NOTE | 2018-08-12 00:27 | CP.PCM.PN ---
Subjective - Date & Time of Evaluation Date of Evaluation: 08/07/18 Time of Evaluation: 11:00 - Subjective Subjective: Patient remains stable Has no chest pain Has no SOB Still with pain on the RUQ area. Objective - Vital Signs/Intake and Output Vital Signs (last 24 hours): Temp Pulse Resp BP Pulse Ox 97.5 F L 77 18 126/81 96 08/11/18 21:04 08/11/18 21:04 08/11/18 21:04 08/11/18 21:04 08/11/18 21:04 Intake and Output: 08/11/18 08/12/18 18:59 06:59 Output Total 65 Balance -65 - Medications Medications: Current Medications Acetaminophen (Tylenol 325mg Tab) 650 mg PO Q4 PRN PRN Reason: Fever >100.4 F Diphenhydramine HCl (Benadryl) 50 mg PO Q6 PRN PRN Reason: Itching / Pruritus Last Admin: 08/08/18 17:22 Dose: 50 mg Enoxaparin Sodium (Lovenox) 40 mg SC DAILY [facility]; Protocol Last Admin: 08/11/18 11:57 Dose: 40 mg Metronidazole 250 mg/ (Miscellaneous) 50 mls @ 50 mls/hr IVPB Q8 [facility]; Protocol Last Admin: 08/11/18 16:58 Dose: 50 mls/hr Levofloxacin/Dextrose (Levaquin 750mg) 750 mg in 150 mls @ 100 mls/hr IVPB DAILY [facility] Last Admin: 08/11/18 11:42 Dose: 100 mls/hr Dextrose/Lactated Ringer's (Dextrose 5%/Lactated Ringer's) 1,000 mls @ 75 mls/hr IV .[id number] [facility] Stop: 08/12/18 14:22 Last Admin: 08/11/18 18:18 Dose: 75 mls/hr Ketorolac Tromethamine (Toradol) 30 mg IVP Q6 PRN PRN Reason: Pain, Mild (1-3) Last Admin: 08/12/18 00:16 Dose: 30 mg Ondansetron HCl (Zofran Inj) 4 mg IVP Q4 PRN PRN Reason: Nausea/Vomiting Pantoprazole Sodium (Protonix Inj) 40 mg IVP DAILY [facility] Last Admin: 08/11/18 14:50 Dose: 40 mg Psyllium Hydrophilic Mucilloid (Hydrocil Instant) 1 pkt PO BID [facility] Last Admin: 08/11/18 16:59 Dose: Not Given - Labs Labs: 08/11/18 05:30 08/11/18 05:30 PT 14.9 Seconds (9.8-13.1) H 08/10/18 09:34 INR 1.3 08/10/18 09:34 APTT 33.6 Seconds (25.6-37.1) 08/10/18 09:34 - Head Exam Head Exam: NORMAL INSPECTION - Eye Exam Eye Exam: Normal appearance - ENT Exam ENT Exam: Mucous Membranes Moist - Respiratory Exam Respiratory Exam: Clear to Ausculation Bilateral - Cardiovascular Exam Cardiovascular Exam: REGULAR RHYTHM - GI/Abdominal Exam GI & Abdominal Exam: Soft, Tenderness Assessment and Plan (1) Hepatic abscess Status: Acute (2) Hiatal hernia Status: Acute - Assessment and Plan (Free Text) Plan: Cont meds Cont tx Cont PT pain meds.
--- NOTE | 2018-08-12 00:30 | CP.PCM.PN ---
Subjective - Date & Time of Evaluation Date of Evaluation: 08/08/18 Time of Evaluation: 13:00 - Subjective Subjective: Patient has less pain No fever Desires to go home Noted to have persistent drainage Has no fever. CT scan of the abd showed persistent abscesses even after drain was performed. Objective - Vital Signs/Intake and Output Vital Signs (last 24 hours): Temp Pulse Resp BP Pulse Ox 97.5 F L 77 18 126/81 96 08/11/18 21:04 08/11/18 21:04 08/11/18 21:04 08/11/18 21:04 08/11/18 21:04 Intake and Output: 08/11/18 08/12/18 18:59 06:59 Output Total 65 Balance -65 - Medications Medications: Current Medications Acetaminophen (Tylenol 325mg Tab) 650 mg PO Q4 PRN PRN Reason: Fever >100.4 F Diphenhydramine HCl (Benadryl) 50 mg PO Q6 PRN PRN Reason: Itching / Pruritus Last Admin: 08/08/18 17:22 Dose: 50 mg Enoxaparin Sodium (Lovenox) [address] [facility]; Protocol Last Admin: 08/11/18 11:57 Dose: 40 mg Metronidazole 250 mg/ (Miscellaneous) 50 mls @ 50 mls/hr IVPB Q8 [facility]; Protocol Last Admin: 08/12/18 00:27 Dose: 50 mls/hr Levofloxacin/Dextrose (Levaquin 750mg) 750 mg in 150 mls @ 100 mls/hr IVPB DAILY [facility] Last Admin: 08/11/18 11:42 Dose: 100 mls/hr Dextrose/Lactated Ringer's (Dextrose 5%/Lactated Ringer's) 1,000 mls @ 75 mls/hr IV .[id number] [facility] Stop: 08/12/18 14:22 Last Admin: 08/11/18 18:18 Dose: 75 mls/hr Ketorolac Tromethamine (Toradol) 30 mg IVP Q6 PRN PRN Reason: Pain, Mild (1-3) Last Admin: 08/12/18 00:16 Dose: 30 mg Ondansetron HCl (Zofran Inj) 4 mg IVP Q4 PRN PRN Reason: Nausea/Vomiting Pantoprazole Sodium (Protonix Inj) [address] [facility] Last Admin: 08/11/18 14:50 Dose: 40 mg Psyllium Hydrophilic Mucilloid (Hydrocil Instant) [address] [facility] Last Admin: 08/11/18 16:59 Dose: Not Given - Labs Labs: 08/11/18 05:30 08/11/18 05:30 PT 14.9 Seconds (9.8-13.1) H 08/10/18 09:34 INR 1.3 08/10/18 09:34 APTT 33.6 Seconds (25.6-37.1) 08/10/18 09:34 - Head Exam Head Exam: NORMAL INSPECTION - Eye Exam Eye Exam: Normal appearance - ENT Exam ENT Exam: Mucous Membranes Moist - Respiratory Exam Respiratory Exam: Clear to Ausculation Bilateral - Cardiovascular Exam Cardiovascular Exam: REGULAR RHYTHM - GI/Abdominal Exam GI & Abdominal Exam: Tenderness, Normal Bowel Sounds Assessment and Plan (1) Hepatic abscess Status: Acute (2) Hiatal hernia Status: Acute - Assessment and Plan (Free Text) Plan: Con tmeds Follow up with surgery may need explore lap for proper treatment of abscess.
--- NOTE | 2018-08-12 00:32 | CP.PCM.PN ---
Subjective - Date & Time of Evaluation Date of Evaluation: 08/09/18 Time of Evaluation: 14:00 - Subjective Subjective: patient is scheduled for surgery in AM Has no fever has no chest pain Objective - Vital Signs/Intake and Output Vital Signs (last 24 hours): Temp Pulse Resp BP Pulse Ox 97.5 F L 77 18 126/81 96 08/11/18 21:04 08/11/18 21:04 08/11/18 21:04 08/11/18 21:04 08/11/18 21:04 Intake and Output: 08/11/18 08/12/18 18:59 06:59 Output Total 65 Balance -65 - Medications Medications: Current Medications Acetaminophen (Tylenol 325mg Tab) 650 mg PO Q4 PRN PRN Reason: Fever >100.4 F Diphenhydramine HCl (Benadryl) 50 mg PO Q6 PRN PRN Reason: Itching / Pruritus Last Admin: 08/08/18 17:22 Dose: 50 mg Enoxaparin Sodium (Lovenox) 40 mg SC DAILY [facility]; Protocol Last Admin: 08/11/18 11:57 Dose: 40 mg Metronidazole 250 mg/ (Miscellaneous) 50 mls @ 50 mls/hr IVPB Q8 [facility]; Protocol Last Admin: 08/12/18 00:27 Dose: 50 mls/hr Levofloxacin/Dextrose (Levaquin 750mg) 750 mg in 150 mls @ 100 mls/hr IVPB DAILY [facility] Last Admin: 08/11/18 11:42 Dose: 100 mls/hr Dextrose/Lactated Ringer's (Dextrose 5%/Lactated Ringer's) 1,000 mls @ 75 mls/hr IV .[id number] [facility] Stop: 08/12/18 14:22 Last Admin: 08/11/18 18:18 Dose: 75 mls/hr Ketorolac Tromethamine (Toradol) 30 mg IVP Q6 PRN PRN Reason: Pain, Mild (1-3) Last Admin: 08/12/18 00:16 Dose: 30 mg Ondansetron HCl (Zofran Inj) 4 mg IVP Q4 PRN PRN Reason: Nausea/Vomiting Pantoprazole Sodium (Protonix Inj) 40 mg IVP DAILY [facility] Last Admin: 08/11/18 14:50 Dose: 40 mg Psyllium Hydrophilic Mucilloid (Hydrocil Instant) 1 pkt PO BID [facility] Last Admin: 08/11/18 16:59 Dose: Not Given - Labs Labs: 08/11/18 05:30 08/11/18 05:30 PT 14.9 Seconds (9.8-13.1) H 08/10/18 09:34 INR 1.3 08/10/18 09:34 APTT 33.6 Seconds (25.6-37.1) 08/10/18 09:34 - Head Exam Head Exam: NORMAL INSPECTION - Eye Exam Eye Exam: Normal appearance - ENT Exam ENT Exam: Mucous Membranes Moist - Respiratory Exam Respiratory Exam: Clear to Ausculation Bilateral - Cardiovascular Exam Cardiovascular Exam: REGULAR RHYTHM - GI/Abdominal Exam GI & Abdominal Exam: Soft, Tenderness Assessment and Plan (1) Hepatic abscess Status: Acute (2) Hiatal hernia Status: Acute - Assessment and Plan (Free Text) Plan: Con tmeds Cont tx Pain meds for surgery in am
--- NOTE | 2018-08-12 00:34 | CP.PCM.PN ---
Subjective - Date & Time of Evaluation Date of Evaluation: 08/10/18 Time of Evaluation: 10:00 - Subjective Subjective: Patient for surgery Has no fever. Objective - Vital Signs/Intake and Output Vital Signs (last 24 hours): Temp Pulse Resp BP Pulse Ox 97.5 F L 77 18 126/81 96 08/11/18 21:04 08/11/18 21:04 08/11/18 21:04 08/11/18 21:04 08/11/18 21:04 Intake and Output: 08/11/18 08/12/18 18:59 06:59 Output Total 65 Balance -65 - Medications Medications: Current Medications Acetaminophen (Tylenol 325mg Tab) 650 mg PO Q4 PRN PRN Reason: Fever >100.4 F Diphenhydramine HCl (Benadryl) 50 mg PO Q6 PRN PRN Reason: Itching / Pruritus Last Admin: 08/08/18 17:22 Dose: 50 mg Enoxaparin Sodium (Lovenox) 40 mg SC DAILY [facility]; Protocol Last Admin: 08/11/18 11:57 Dose: 40 mg Metronidazole 250 mg/ (Miscellaneous) 50 mls @ 50 mls/hr IVPB Q8 [facility]; Protocol Last Admin: 08/12/18 00:27 Dose: 50 mls/hr Levofloxacin/Dextrose (Levaquin 750mg) 750 mg in 150 mls @ 100 mls/hr IVPB D AILY [facility] Last Admin: 08/11/18 11:42 Dose: 100 mls/hr Dextrose/Lactated Ringer's (Dextrose 5%/Lactated Ringer's) 1,000 mls @ 75 mls/hr IV .[id number] [facility] Stop: 08/12/18 14:22 Last Admin: 08/11/18 18:18 Dose: 75 mls/hr Ketorolac Tromethamine (Toradol) 30 mg IVP Q6 PRN PRN Reason: Pain, Mild (1-3) Last Admin: 08/12/18 00:16 Dose: 30 mg Ondansetron HCl (Zofran Inj) 4 mg IVP Q4 PRN PRN Reason: Nausea/Vomiting Pantoprazole Sodium (Protonix Inj) 40 mg IVP DAILY [facility] Last Admin: 08/11/18 14:50 Dose: 40 mg Psyllium Hydrophilic Mucilloid (Hydrocil Instant) 1 pkt PO BID [facility] Last Admin: 08/11/18 16:59 Dose: Not Given - Labs Labs: 08/11/18 05:30 08/11/18 05:30 PT 14.9 Seconds (9.8-13.1) H 08/10/18 09:34 INR 1.3 08/10/18 09:34 APTT 33.6 Seconds (25.6-37.1) 08/10/18 09:34 - Head Exam Head Exam: NORMAL INSPECTION - Eye Exam Eye Exam: Normal appearance - ENT Exam ENT Exam: Normal Oropharynx - Respiratory Exam Respiratory Exam: Clear to Ausculation Bilateral - Cardiovascular Exam Cardiovascular Exam: REGULAR RHYTHM Assessment and Plan (1) Hepatic abscess Status: Acute (2) Hiatal hernia Status: Acute - Assessment and Plan (Free Text) Plan: Medically stable for surgery will follow up post op
--- NOTE | 2018-08-12 00:43 | CP.PCM.PN ---
Subjective - Date & Time of Evaluation Date of Evaluation: 08/11/18 Time of Evaluation: 17:00 - Subjective Subjective: Patient had surgery yesterday and was evacuated significant amount of abscess. Has no fever Has tenderness on ivan op site. Objective - Vital Signs/Intake and Output Vital Signs (last 24 hours): Temp Pulse Resp BP Pulse Ox 97.5 F L 77 18 126/81 96 08/11/18 21:04 08/11/18 21:04 08/11/18 21:04 08/11/18 21:04 08/11/18 21:04 Intake and Output: 08/11/18 08/12/18 18:59 06:59 Output Total 65 Balance -65 - Medications Medications: Current Medications Acetaminophen (Tylenol 325mg Tab) 650 mg PO Q4 PRN PRN Reason: Fever >100.4 F Diphenhydramine HCl (Benadryl) 50 mg PO Q6 PRN PRN Reason: Itching / Pruritus Last Admin: 08/08/18 17:22 Dose: 50 mg Enoxaparin Sodium (Lovenox) 40 mg SC DAILY [facility]; Protocol Last Admin: 08/11/18 11:57 Dose: 40 mg Metronidazole 250 mg/ (Miscellaneous) 50 mls @ 50 mls/hr IVPB Q8 [facility]; Protocol Last Admin: 08/12/18 00:27 Dose: 50 mls/hr Levofloxacin/Dextrose (Levaquin 750mg) 750 mg in 150 mls @ 100 mls/hr IVPB DAILY [facility] Last Admin: 08/11/18 11:42 Dose: 100 mls/hr Dextrose/Lactated Ringer's (Dextrose 5%/Lactated Ringer's) 1,000 mls @ 75 mls/hr IV .[id number] [facility] Stop: 08/12/18 14:22 Last Admin: 08/11/18 18:18 Dose: 75 mls/hr Ketorolac Tromethamine (Toradol) 30 mg IVP Q6 PRN PRN Reason: Pain, Mild (1-3) Last Admin: 08/12/18 00:16 Dose: 30 mg Ondansetron HCl (Zofran Inj) 4 mg IVP Q4 PRN PRN Reason: Nausea/Vomiting Pantoprazole Sodium (Protonix Inj) 40 mg IVP DAILY [facility] Last Admin: 08/11/18 14:50 Dose: 40 mg Psyllium Hydrophilic Mucilloid (Hydrocil Instant) 1 pkt PO BID [facility] Last Admin: 08/11/18 16:59 Dose: Not Given - Labs Labs: 08/11/18 05:30 08/11/18 05:30 PT 14.9 Seconds (9.8-13.1) H 08/10/18 09:34 INR 1.3 08/10/18 09:34 APTT 33.6 Seconds (25.6-37.1) 08/10/18 09:34 - Head Exam Head Exam: NORMAL INSPECTION - Eye Exam Eye Exam: Normal appearance - ENT Exam ENT Exam: Mucous Membranes Moist - Respiratory Exam Respiratory Exam: Clear to Ausculation Bilateral - Cardiovascular Exam Cardiovascular Exam: REGULAR RHYTHM - GI/Abdominal Exam GI & Abdominal Exam: Normal Bowel Sounds Assessment and Plan (1) Hepatic abscess Status: Acute (2) Hiatal hernia Status: Acute - Assessment and Plan (Free Text) Plan: Cont meds Cont tx Cont pain meds drains are in place
[2018-08-12] MEDS: Dextrose 5%/Lactated Ringer's 1,000 ML IV SCH ×2 (03:28→05:34)
[2018-08-12 06:58] LABS: BASO % 0.1 % (0.0-2.0); EOS # 0.4 K/uL (0.0-0.7); EOS % 3.4 % (0.0-4.0); HEMOGLOBIN 11.6 g/dL (12.0-18.0); LYMPH % 8.4 % (20.0-40.0); MEAN CELL VOLUME 85.7 fl (80.0-94.0); MEAN CORPUSCULAR HEMOGLOBIN 28.3 pg (27.0-31.0); MEAN PLATELET VOLUME 7.4 fl (7.2-11.7); MONO # 1.2 K/uL (0.0-0.8); MONO % 9.6 % (0.0-10.0); NEUT # 9.5 K/uL (1.8-7.0); NEUT % 78.5 % (50.0-75.0); RBC 4.11 Mil/uL (4.40-5.90); RED CELL DISTRIBUTION WIDTH 14.5 % (11.5-14.5); WHITE BLOOD COUNT 12.2 K/uL (4.8-10.8)
[2018-08-12 07:01] LABS: BLOOD UREA NITROGEN 4 mg/dl (9-20); CALCIUM 8.3 mg/dL (8.4-10.2); GFR NON-AFRICAN AMERICAN > 60
[2018-08-12] MEDS: Enoxaparin 40 mg Syringe SC SCH (08:43)
[2018-08-12] MEDS: Psyllium Packet PO SCH ×3 (08:43→16:19)
[2018-08-12] MEDS: levoFLOXacin 750 mg in D5W 750 MG/150 ML BAG IVPB SCH (08:44)
--- NOTE | 2018-08-12 09:15 | CP.PCM.PN ---
Subjective - Date & Time of Evaluation Date of Evaluation: 08/12/18 Time of Evaluation: 07:10 - Subjective Subjective: Surgery Progress note. Dr. Ortega Pt seen and examined at bedside this morning. Tolerating liquid diet. Dressing changed this morning, packing replaced and patient tolerated procedure well. Pain controlled. Pigtail drain 45cc, Left ZULEYMA 39cc, Right ZULEYMA 46cc in 24 hours. Denies and nausea or vomiting. No new complaints. Objective - Vital Signs/Intake and Output Vital Signs (last 24 hours): Temp Pulse Resp BP Pulse Ox 98.3 F 74 20 103/64 96 08/12/18 08:49 08/12/18 08:49 08/12/18 08:49 08/12/18 08:49 08/12/18 08:49 Intake and Output: 08/12/18 08/12/18 06:59 18:59 Output Total 130 Balance -130 - Medications Medications: Current Medications Acetaminophen (Tylenol 325mg Tab) 650 mg PO Q4 PRN PRN Reason: Fever >100.4 F Diphenhydramine HCl (Benadryl) 50 mg PO Q6 PRN PRN Reason: Itching / Pruritus Last Admin: 08/08/18 17:22 Dose: 50 mg Enoxaparin Sodium (Lovenox) 40 mg SC DAILY [facility]; Protocol Last Admin: 08/12/18 08:43 Dose: 40 mg Metronidazole 250 mg/ (Miscellaneous) 50 mls @ 50 mls/hr IVPB Q8 [facility]; Protocol Last Admin: 08/12/18 08:44 Dose: 50 mls/hr Levofloxacin/Dextrose (Levaquin 750mg) 750 mg in 150 mls @ 100 mls/hr IVPB DAILY [facility] Last Admin: 08/12/18 08:44 Dose: 100 mls/hr Ibuprofen (Motrin Tab) 400 mg PO Q6 PRN PRN Reason: Pain, Mild (1-3) Ondansetron HCl (Zofran Inj) 4 mg IVP Q4 PRN PRN Reason: Nausea/Vomiting Pantoprazole Sodium (Protonix Inj) 40 mg IVP DAILY [facility] Last Admin: 08/12/18 08:43 Dose: 40 mg Psyllium Hydrophilic Mucilloid (Hydrocil Instant) 1 pkt PO BID [facility] Last Admin: 08/12/18 08:55 Dose: Not Given Tramadol HCl (Ultram) 50 mg PO Q6 PRN PRN Reason: Pain, severe (8-10) Last Admin: 08/12/18 09:05 Dose: 50 mg - Labs Labs: 08/12/18 05:30 08/12/18 05:30 PT 14.9 Seconds (9.8-13.1) H 08/10/18 09:34 INR 1.3 08/10/18 09:34 APTT 33.6 Seconds (25.6-37.1) 08/10/18 09:34 - Constitutional Appears: Well, Non-toxic, No Acute Distress - Head Exam Head Exam: ATRAUMATIC, NORMAL INSPECTION, NORMOCEPHALIC - Eye Exam Eye Exam: EOMI, Normal appearance - ENT Exam ENT Exam: Mucous Membranes Moist - Neck Exam Neck Exam: Full ROM - Respiratory Exam Respiratory Exam: NORMAL BREATHING PATTERN. absent: Accessory Muscle Use - Cardiovascular Exam Cardiovascular Exam: absent: JVD - GI/Abdominal Exam GI & Abdominal Exam: Soft. absent: Distended, Firm, Guarding, Rigid, Rebound Additional comments: Incision clean, dry and intact. Mild tenderness mark anthony-incisionally. Dressing changed and packing replaced this morning. - Extremities Exam Extremities Exam: Normal Inspection - Neurological Exam Neurological Exam: Alert, Oriented x3 - Psychiatric Exam Psychiatric exam: Normal Affect, Normal Mood - Skin Skin Exam: Dry, Normal Color, Warm Assessment and Plan - Assessment and Plan (Free Text) Assessment: 58yo M s/p Liver abscess unroofing debridement and omentopexy POD 2 Plan: - IV abx - DVT ppx - Encourage OOBTC, Ambulation and IS use - monitor drain outputs - Will Advance diet - Pain management Rahul Hood PGY2 Surgery
[2018-08-12] MEDS: Oxycodone/Acetaminophen 5/325 mg Tab PO PRN ×2 (12:01→17:22)
[2018-08-12] MEDS ORDERED: Oxycodone/Acetaminophen 5/325 mg Tab PO PRN (18:33)
[2018-08-12] MEDS ORDERED: Alum-Mag Hydrox-Simethicone Susp (30 mL) PO ONE (20:51)
[2018-08-13] MEDS: metroNIDAZOLE 500mg/100ml NS 250 MG in Premixed IV 1 EA IVPB SCH ×3 (00:43→16:16)
--- NOTE | 2018-08-13 01:35 | CP.PCM.PN ---
Subjective - Date & Time of Evaluation Date of Evaluation: 08/12/18 Time of Evaluation: 16:40 - Subjective Subjective: Patient continues to have pain on the abd area In fact he claims that pain is worst today Has no fever Noted WBC to drop from 16 to 12. Objective - Vital Signs/Intake and Output Vital Signs (last 24 hours): Temp Pulse Resp BP Pulse Ox 97.6 F 88 18 132/86 92 L 08/12/18 16:24 08/12/18 16:24 08/12/18 16:24 08/12/18 16:24 08/12/18 16:24 Intake and Output: 08/12/18 08/13/18 18:59 06:59 Output Total 80 Balance -80 - Medications Medications: Current Medications Acetaminophen (Tylenol 325mg Tab) 650 mg PO Q4 PRN PRN Reason: Fever >100.4 F Diphenhydramine HCl (Benadryl) 50 mg PO Q6 PRN PRN Reason: Itching / Pruritus Last Admin: 08/08/18 17:22 Dose: 50 mg Docusate Sodium (Colace) 100 mg PO BID [facility] Enoxaparin Sodium (Lovenox) 40 mg SC DAILY [facility]; Protocol Last Admin: 08/12/18 08:43 Dose: 40 mg Hydromorphone HCl (Dilaudid) 0.5 mg IVP Q6H PRN PRN Reason: Pain, severe (8-10) Stop: 08/14/18 15:22 Last Admin: 08/12/18 21:43 Dose: 0.5 mg Metronidazole 250 mg/ (Miscellaneous) 50 mls @ 50 mls/hr IVPB Q8 [facility]; Protocol Last Admin: 08/13/18 00:43 Dose: 50 mls/hr Levofloxacin/Dextrose (Levaquin 750mg) 750 mg in 150 mls @ 100 mls/hr IVPB PARVE[facility] Y [facility] Last Admin: 08/12/18 08:44 Dose: 100 mls/hr Ondansetron HCl (Zofran Inj) 4 mg IVP Q4 PRN PRN Reason: Nausea/Vomiting Oxycodone/Acetaminophen (Percocet 5/325 Mg Tab) 1 tab PO Q6 PRN PRN Reason: Pain, moderate (4-7) Stop: 08/15/18 11:44 Pantoprazole Sodium (Protonix Inj) 40 mg IVP DAILY [facility] Last Admin: 08/12/18 08:43 Dose: 40 mg Psyllium Hydrophilic Mucilloid (Hydrocil Instant) 1 pkt PO BID [facility] Last Admin: 08/12/18 16:19 Dose: Not Given - Labs Labs: 08/12/18 05:30 08/12/18 05:30 PT 14.9 Seconds (9.8-13.1) H 08/10/18 09:34 INR 1.3 08/10/18 09:34 APTT 33.6 Seconds (25.6-37.1) 08/10/18 09:34 - Head Exam Head Exam: NORMAL INSPECTION - Eye Exam Eye Exam: Normal appearance - ENT Exam ENT Exam: Mucous Membranes Moist - Respiratory Exam Respiratory Exam: Clear to Ausculation Bilateral - Cardiovascular Exam Cardiovascular Exam: REGULAR RHYTHM - GI/Abdominal Exam GI & Abdominal Exam: Normal Bowel Sounds Additional comments: tenderness on the flank areas and lower quadrants and RUQ areas. Assessment and Plan (1) Hepatic abscess Status: Acute (2) Hiatal hernia Status: Acute - Assessment and Plan (Free Text) Plan: Con tmeds cont tx repeat CT scan abdomen CBC sed rate cmp in am.
[2018-08-13 06:32] LABS: BASO % 0.3 % (0.0-2.0); EOS # 0.4 K/uL (0.0-0.7); EOS % 3.8 % (0.0-4.0); LYMPH # 1.3 K/uL (1.0-4.3); LYMPH % 11.3 % (20.0-40.0); MEAN CELL VOLUME 85.5 fl (80.0-94.0); MEAN CORPUSCULAR HEMOGLOBIN 28.2 pg (27.0-31.0); MEAN PLATELET VOLUME 7.3 fl (7.2-11.7); MONO # 1.2 K/uL (0.0-0.8); MONO % 10.3 % (0.0-10.0); NEUT # 8.4 K/uL (1.8-7.0); NEUT % 74.3 % (50.0-75.0); RBC 4.27 Mil/uL (4.40-5.90); WHITE BLOOD COUNT 11.3 K/uL (4.8-10.8)
[2018-08-13 06:43] LABS: BLOOD UREA NITROGEN 6 mg/dl (9-20); CALCIUM 8.4 mg/dL (8.4-10.2); GFR NON-AFRICAN AMERICAN > 60
--- NOTE | 2018-08-13 08:14 | CP.PCM.PN ---
Subjective - Date & Time of Evaluation Date of Evaluation: 08/13/18 Time of Evaluation: 08:13 - Subjective Subjective: Surgery PT seen and examined. Dressing changes this AM. Denies fever. Pain controlled. Tolerating diet. Objective - Vital Signs/Intake and Output Vital Signs (last 24 hours): Temp Pulse Resp BP Pulse Ox 97.5 F L 64 18 127/81 94 L 08/13/18 07:53 08/13/18 07:53 08/13/18 07:53 08/13/18 07:53 08/13/18 07:53 Intake and Output: 08/13/18 08/13/18 06:59 18:59 Output Total 45 Balance -45 - Medications Medications: Current Medications Acetaminophen (Tylenol 325mg Tab) 650 mg PO Q4 PRN PRN Reason: Fever >100.4 F Diphenhydramine HCl (Benadryl) 50 mg PO Q6 PRN PRN Reason: Itching / Pruritus Last Admin: 08/08/18 17:22 Dose: 50 mg Docusate Sodium (Colace) 100 mg PO BID [facility] Enoxaparin Sodium (Lovenox) 40 mg SC DAILY [facility]; Protocol Last Admin: 08/12/18 08:43 Dose: 40 mg Hydromorphone HCl (Dilaudid) 0.5 mg IVP Q6H PRN PRN Reason: Pain, severe (8-10) Stop: 08/14/18 15:22 Last Admin: 08/12/18 21:43 Dose: 0.5 mg Metronidazole 250 mg/ (Miscellaneous) 50 mls @ 50 mls/hr IVPB Q8 [facility]; Protocol Last Admin: 08/13/18 00:43 Dose: 50 mls/hr Levofloxacin/Dextrose (Levaquin 750mg) 750 mg in 150 mls @ 100 mls/hr IVPB DAILY [facility] Last Admin: 08/12/18 08:44 Dose: 100 mls/hr Ondansetron HCl (Zofran Inj) 4 mg IVP Q4 PRN PRN Reason: Nausea/Vomiting Oxycodone/Acetaminophen (Percocet 5/325 Mg Tab) 1 tab PO Q6 PRN PRN Reason: Pain, moderate (4-7) Stop: 08/15/18 11:44 Pantoprazole Sodium (Protonix Inj) 40 mg IVP DAILY [facility] Last Admin: 08/12/18 08:43 Dose: 40 mg Psyllium Hydrophilic Mucilloid (Hydrocil Instant) 1 pkt PO BID [facility] Last Admin: 08/12/18 16:19 Dose: Not Given - Labs Labs: 08/13/18 05:24 08/13/18 05:24 PT 14.9 Seconds (9.8-13.1) H 08/10/18 09:34 INR 1.3 08/10/18 09:34 APTT 33.6 Seconds (25.6-37.1) 08/10/18 09:34 - Constitutional Appears: Well, No Acute Distress - Head Exam Head Exam: ATRAUMATIC, NORMAL INSPECTION, NORMOCEPHALIC - Eye Exam Eye Exam: EOMI, Normal appearance, PERRL Pupil Exam: NORMAL ACCOMODATION, PERRL - ENT Exam ENT Exam: Mucous Membranes Moist, Normal Exam - Neck Exam Neck Exam: Full ROM, Normal Inspection - Respiratory Exam Respiratory Exam: NORMAL BREATHING PATTERN - Cardiovascular Exam Cardiovascular Exam: REGULAR RHYTHM - GI/Abdominal Exam GI & Abdominal Exam: Soft. absent: Tenderness Additional comments: Incision stapled. Packing saturated. Changed. Drains in place: 50 cc ss /24hrs pigtail , L ZULEYMA 60cc ss/24hrs, R ZULEYMA 15 cc ss /24hrs. - Exam Exam: NORMAL INSPECTION - Extremities Exam Extremities Exam: Full ROM, Normal Inspection - Back Exam Back Exam: NORMAL INSPECTION - Neurological Exam Neurological Exam: Awake, Normal Gait, Oriented x3 - Psychiatric Exam Psychiatric exam: Normal Affect, Normal Mood - Skin Skin Exam: Dry, Intact, Normal Color, Warm Assessment and Plan - Assessment and Plan (Free Text) Assessment: 58yo M s/p Liver abscess unroofing debridement and omentopexy POD 3 Plan: - IV abx - DVT ppx - Encourage OOBTC, Ambulation and IS use - monitor drain outputs - Regular diet - Pain management DW Dr. Ortega
[2018-08-13] MEDS: Psyllium Packet PO SCH ×2 (09:13→16:13)
[2018-08-13] MEDS: levoFLOXacin 750 mg in D5W 750 MG/150 ML BAG IVPB SCH (09:15)
[2018-08-13] MEDS: Enoxaparin 40 mg Syringe SC SCH (09:15)
[2018-08-13] MEDS ORDERED: Iohexol 300 100 ML IJ ONE (10:23)
[2018-08-13] MEDS ORDERED: Sodium Chloride 0.9% 50 ML IV ONE (10:23)
--- NOTE | 2018-08-13 12:17 | CT ---
Date of service: 08/13/2018 PROCEDURE: CT Abdomen and Pelvis with contrast HISTORY: S/p expl. lap. for liver abscess COMPARISON: Abdomen and pelvis CT with contrast 08/08/2018. TECHNIQUE: Following the intravenous administration of iodinated contrast material, a CT examination of the abdomen and pelvis performed from the domes of the diaphragms to the symphysis pubis with reformatted datasets provided in axial, sagittal and coronal planes. Oral contrast was not administered as per referring physician request. Coronal and sagittal reformats were generated. contrast dose: Omnipaque 300, 99 cc Radiation dose: Total exam DLP = 1057.38 mGy-cm. This CT exam was performed using one or more of the following dose reduction techniques: Automated exposure control, adjustment of the mA and/or kV according to patient size, and/or use of iterative reconstruction technique. FINDINGS: LOWER THORAX: Right lower lobe granulomata are reiterated. Mild right pleural effusion exerts limited compressive atelectasis in the right lower lobe with trace of pleural effusion and limited dependent/compressive atelectasis left lower lobe. Small hiatal hernia reiterated. LIVER: Prior right subdiaphragmatic/hepatic fluid collection is now treated by 2 drainage catheters with a lateral sub costal pigtail catheter terminating at the site of the prior collection and a 2nd more medial catheter placed by and midline peritoneal approach also identified present. A Raghav type drain is seen at the lateral right perihepatic peritoneal space. Additional drainage catheter is seen at the lateral right flank upper pericolic gutter. Trace residual fluid remains with limited perihepatic ascites seen anteriorly. Limited ascites extends to the right lower quadrant abdomen with midline/right sub costal incision identified at the anterior abdominal wall with limited postoperative changes associated. Intrinsic liver enhancement is remarkable for a small lucency 1.5 cm at the inferior portion right lobe. GALLBLADDER AND BILE DUCTS: Again not visualized. Clinically correlate as to potential prior cholecystectomy. PANCREAS: Unremarkable. No gross lesion or ductal dilatation. SPLEEN: Unremarkable. ADRENALS: Unremarkable. No mass. KIDNEYS AND URETERS: Unremarkable. No hydronephrosis. No solid mass. VASCULATURE: Unremarkable. No aortic aneurysm. No aortic atherosclerotic calcification or mural plaque present. BOWEL: No bowel obstruction apparent. Sigmoid diverticulosis reiterated. APPENDIX: Normal appendix. PERITONEUM: Limited pelvic ascites identified. LYMPH NODES: Unremarkable. No enlarged lymph nodes. BLADDER: Unremarkable. REPRODUCTIVE: Mild prostate gland enlargement again evident. BONES: Stable appearance. OTHER FINDINGS: None. IMPRESSION: 1. Right subdiaphragmatic/perihepatic fluid collection now largely evacuated with multiple catheters and tubes identified at the right rekha abdomen. Trace fluid remains. Please see discussion above. Midline/right upper quadrant abdominal wall postoperative changes related to incision. 2. Lesser findings as discussed above.
[2018-08-13] MEDS: Alum-Mag Hydrox-Simethicone Susp (30 mL) PO PRN (22:35)
[2018-08-14] MEDS: metroNIDAZOLE 500mg/100ml NS 250 MG in Premixed IV 1 EA IVPB SCH ×3 (00:10→16:27)
[2018-08-14] MEDS ORDERED: Simethicone 80 mg Chewtab PO ONE (00:20)
[2018-08-14] MEDS: Enoxaparin 40 mg Syringe SC SCH (09:20)
[2018-08-14] MEDS: levoFLOXacin 750 mg in D5W 750 MG/150 ML BAG IVPB SCH (09:25)
--- NOTE | 2018-08-14 09:27 | CP.PCM.PN ---
Subjective - Date & Time of Evaluation Date of Evaluation: 08/14/18 Time of Evaluation: 09:25 - Subjective Subjective: Surgery Pt seen and examined. Reports nausea, vomiting after eating tuna yesterday. Pain improved. Drains in place. Dressing and packing changed. Objective - Vital Signs/Intake and Output Vital Signs (last 24 hours): Temp Pulse Resp BP Pulse Ox 97.6 F 89 18 147/93 H 96 08/14/18 08:03 08/14/18 08:03 08/14/18 08:03 08/14/18 08:03 08/14/18 08:03 Intake and Output: 08/14/18 08/14/18 06:59 18:59 Output Total 95 Balance -95 - Medications Medications: Current Medications Acetaminophen (Tylenol 325mg Tab) 650 mg PO Q4 PRN PRN Reason: Fever >100.4 F Al Hydrox/Mg Hydrox/Simethicone (Maalox Plus 30 Ml) 30 ml PO DAILY PRN PRN Reason: Heartburn Last Admin: 08/13/18 22:35 Dose: 30 ml Chlorpromazine (Thorazine) 10 mg PO Q12 [facility] Diphenhydramine HCl (Benadryl) 50 mg PO Q6 PRN PRN Reason: Itching / Pruritus Last Admin: 08/08/18 17:22 Dose: 50 mg Docusate Sodium (Colace) 100 mg PO BID [facility] Last Admin: 08/13/18 16:15 Dose: 100 mg Enoxaparin Sodium (Lovenox) 40 mg SC DAILY [facility]; Protocol Last Admin: 08/14/18 09:20 Dose: 40 mg Hydromorphone HCl (Dilaudid) 0.5 mg IVP Q6H PRN PRN Reason: Pain, severe (8-10) Stop: 08/14/18 15:22 Last Admin: 08/14/18 03:50 Dose: 0.5 mg Metronidazole 250 mg/ (Miscellaneous) 50 mls @ 50 mls/hr IVPB Q8 [facility]; Protocol Last Admin: 08/14/18 00:10 Dose: 50 mls/hr Levofloxacin/Dextrose (Levaquin 750mg) 750 mg in 150 mls @ 100 mls/hr IVPB DAILY [facility] Last Admin: 08/13/18 09:15 Dose: 100 mls/hr Metoclopramide HCl (Reglan) 5 mg PO [facility] Ondansetron HCl (Zofran Inj) 4 mg IVP Q4 PRN PRN Reason: Nausea/Vomiting Last Admin: 08/14/18 07:42 Dose: 4 mg Oxycodone/Acetaminophen (Percocet 5/325 Mg Tab) 1 tab PO Q6 PRN PRN Reason: Pain, moderate (4-7) Stop: 08/15/18 11:44 Pantoprazole Sodium (Protonix Inj) 40 mg IVP DAILY [facility] Last Admin: 08/13/18 09:16 Dose: 40 mg Psyllium Hydrophilic Mucilloid (Hydrocil Instant) 1 pkt PO BID [facility] Last Admin: 08/13/18 16:13 Dose: Not Given Simethicone (Mylicon Chew Tab) 80 mg PO [facility] PRN PRN Reason: Flatulence - Labs Labs: 08/13/18 05:24 08/13/18 05:24 PT 14.9 Seconds (9.8-13.1) H 08/10/18 09:34 INR 1.3 08/10/18 09:34 APTT 33.6 Seconds (25.6-37.1) 08/10/18 09:34 - Constitutional Appears: No Acute Distress - Head Exam Head Exam: ATRAUMATIC, NORMAL INSPECTION, NORMOCEPHALIC - Eye Exam Eye Exam: EOMI, Normal appearance, PERRL Pupil Exam: NORMAL ACCOMODATION, PERRL - ENT Exam ENT Exam: Mucous Membranes Moist - Neck Exam Neck Exam: Full ROM, Normal Inspection. absent: Lymphadenopathy - Respiratory Exam Respiratory Exam: NORMAL BREATHING PATTERN - Cardiovascular Exam Cardiovascular Exam: REGULAR RHYTHM - GI/Abdominal Exam GI & Abdominal Exam: Soft, Tenderness. absent: Distended, Firm, Rebound Additional comments: Incisions open partially and stapled. Packing in place. - Exam Exam: NORMAL INSPECTION - Extremities Exam Extremities Exam: Full ROM - Back Exam Back Exam: NORMAL INSPECTION - Neurological Exam Neurological Exam: Alert, Awake, CN II-XII Intact, Normal Gait, Oriented x3 - Psychiatric Exam Psychiatric exam: Normal Affect, Normal Mood - Skin Skin Exam: Dry, Intact, Normal Color, Warm Assessment and Plan - Assessment and Plan (Free Text) Assessment: 58yo M s/p Liver abscess unroofing debridement and omentopexy POD 4 Plan: - IV abx - DVT ppx - Encourage OOBTC, Ambulation and IS use - monitor drain outputs - Regular diet - Pain management -Nausea control -OK to DC to rehab Will ALVARO Ortega
[2018-08-14] MEDS: Psyllium Packet PO SCH ×2 (09:31→16:28)
[2018-08-14 09:51] LABS: BASO % 0.1 % (0.0-2.0); EOS # 0.3 K/uL (0.0-0.7); EOS % 1.9 % (0.0-4.0); LYMPH # 0.7 K/uL (1.0-4.3); LYMPH % 4.8 % (20.0-40.0); MEAN CELL VOLUME 87.5 fl (80.0-94.0); MEAN CORPUSCULAR HEMOGLOBIN 28.3 pg (27.0-31.0); MEAN CORPUSCULAR HGB CONC 32.4 g/dL (33.0-37.0); MONO # 0.8 K/uL (0.0-0.8); MONO % 5.5 % (0.0-10.0); NEUT # 13.1 K/uL (1.8-7.0); NEUT % 87.7 % (50.0-75.0); NRBC % 0.1 % (0.0-0.0); PLATELET COUNT 390 K/uL (130-400); RED CELL DISTRIBUTION WIDTH 14.9 % (11.5-14.5)
[2018-08-14 11:27] LABS: BANDS 2 % (0-2); BASOPHIL 1 % (0-2); EOSINOPHIL 2 % (0-7); LYMPHOCYTE 7 % (20-50); MONOCYTE 9 % (0-10); NEUTROPHIL 79 % (42-75); PLATELET ESTIMATE NORMAL (NORMAL); TOTAL CELLS COUNTED 100
[2018-08-14 11:28] LABS: ANISOCYTOSIS SLIGHT
--- NOTE | 2018-08-14 12:24 | CP.PCM.PCO ---
Physician Communication Note - Physician Communication Note Physician Communication Note: Pt requires IV Flagyl & Levaquin x [address] Castellon recommendation
--- NOTE | 2018-08-14 12:42 | CP.PCM.PN ---
Subjective - Date & Time of Evaluation Date of Evaluation: 08/14/18 Time of Evaluation: 12:42 - Subjective Subjective: Pt seen and examined at bedside, Reports nausea, dark vomiting this morning, reported ate just tuna and banana yesterday. Abdominal pain improved. Objective - Vital Signs/Intake and Output Vital Signs (last 24 hours): Temp Pulse Resp BP Pulse Ox 97.6 F 89 18 147/93 H 96 08/14/18 08:03 08/14/18 08:03 08/14/18 08:03 08/14/18 08:03 08/14/18 08:03 Intake and Output: 08/14/18 08/14/18 06:59 18:59 Output Total 95 Balance -95 - Medications Medications: Current Medications Acetaminophen (Tylenol 325mg Tab) 650 mg PO Q4 PRN PRN Reason: Fever >100.4 F Al Hydrox/Mg Hydrox/Simethicone (Maalox Plus 30 Ml) 30 ml PO DAILY PRN PRN Reason: Heartburn Last Admin: 08/13/18 22:35 Dose: 30 ml Chlorpromazine (Thorazine) 10 mg PO Q12 [facility] Last Admin: 08/14/18 11:14 Dose: 10 mg Diphenhydramine HCl (Benadryl) 50 mg PO Q6 PRN PRN Reason: Itching / Pruritus Last Admin: 08/08/18 17:22 Dose: 50 mg Docusate Sodium (Colace) 100 mg PO BID [facility] Last Admin: 08/14/18 09:22 Dose: 100 mg Enoxaparin Sodium (Lovenox) 40 mg SC DAILY [facility]; Protocol Last Admin: 08/14/18 09:20 Dose: 40 mg Hydromorphone HCl (Dilaudid) 0.5 mg IVP Q6H PRN PRN Reason: Pain, severe (8-10) Stop: 08/14/18 15:22 Last Admin: 08/14/18 03:50 Dose: 0.5 mg Metronidazole 250 mg/ (Miscellaneous) 50 mls @ 50 mls/hr IVPB Q8 [facility]; Protocol Last Admin: 08/14/18 09:25 Dose: 50 mls/hr Levofloxacin/Dextrose (Levaquin 750mg) 750 mg in 150 mls @ 100 mls/hr IVPB DAILY [facility] Last Admin: 08/14/18 09:25 Dose: 100 mls/hr Metoclopramide HCl (Reglan) 5 mg PO ACHS [facility] Last Admin: 08/14/18 11:14 Dose: 5 mg Ondansetron HCl (Zofran Inj) 4 mg IVP Q4 PRN PRN Reason: Nausea/Vomiting Last Admin: 08/14/18 07:42 Dose: 4 mg Oxycodone/Acetaminophen (Percocet 5/325 Mg Tab) 1 tab PO Q6 PRN PRN Reason: Pain, moderate (4-7) Stop: 08/15/18 11:44 Pantoprazole Sodium (Protonix Inj) 40 mg IVP DAILY [facility] Last Admin: 08/14/18 09:26 Dose: 40 mg Psyllium Hydrophilic Mucilloid (Hydrocil Instant) 1 pkt PO BID [facility] Last Admin: 08/14/18 09:31 Dose: Not Given Simethicone (Mylicon Chew Tab) 80 mg PO [facility] PRN PRN Reason: Flatulence - Labs Labs: 08/14/18 09:43 08/13/18 05:24 PT 14.9 Seconds (9.8-13.1) H 08/10/18 09:34 INR 1.3 08/10/18 09:34 APTT 33.6 Seconds (25.6-37.1) 08/10/18 09:34 - Constitutional Appears: No Acute Distress - Respiratory Exam Respiratory Exam: Clear to Ausculation Bilateral, NORMAL BREATHING PATTERN - Cardiovascular Exam Cardiovascular Exam: REGULAR RHYTHM, +S1, +S2. absent: Tachycardia - GI/Abdominal Exam GI & Abdominal Exam: Soft, Tenderness (diffuse, mild on palpation), Normal Bowel Sounds Additional comments: Drains noted in placed, left ZULEYMA full with 100cc of fluid, right side scant amount of fluid - Extremities Exam Extremities Exam: absent: Pedal Edema - Neurological Exam Neurological Exam: Awake, Oriented x3 - Skin Skin Exam: Dry, Warm Assessment and Plan - Assessment and Plan (Free Text) Assessment: 58 yo M admitted with liver abscess s/p abscess debridement and omentopexy, POD 4 Plan: - IV abx for 1 week per ID - Encourage OOBTC, Ambulation and IS use - monitor drain outputs - Pain management - Nausea control - Surgery cleared to DC to rehab - monitor cbc in am - rest of plan as ordered case seen and examined with Dr Fermin.
--- NOTE | 2018-08-14 16:12 | CP.PCM.PN ---
Subjective - Date & Time of Evaluation Date of Evaluation: 08/14/18 Time of Evaluation: 16:09 - Subjective Subjective: I D NOTE BASED ON CT FINDINGS WOULDCONTINUE SME REGIMEN OF IV ANTIBIOTICS FOR I WEEK ALONG c f/u ct scan Objective - Vital Signs/Intake and Output Vital Signs (last 24 hours): Temp Pulse Resp BP Pulse Ox 97.6 F 89 18 147/93 H 96 08/14/18 08:03 08/14/18 08:03 08/14/18 08:03 08/14/18 08:03 08/14/18 08:03 Intake and Output: 08/14/18 08/14/18 06:59 18:59 Output Total 95 Balance -95 - Medications Medications: Current Medications Acetaminophen (Tylenol 325mg Tab) 650 mg PO Q4 PRN PRN Reason: Fever >100.4 F Al Hydrox/Mg Hydrox/Simethicone (Maalox Plus 30 Ml) 30 ml PO DAILY PRN PRN Reason: Heartburn Last Admin: 08/13/18 22:35 Dose: 30 ml Chlorpromazine (Thorazine) 10 mg PO Q12 [facility] Last Admin: 08/14/18 11:14 Dose: 10 mg Diphenhydramine HCl (Benadryl) 50 mg PO Q6 PRN PRN Reason: Itching / Pruritus Last Admin: 08/08/18 17:22 Dose: 50 mg Docusate Sodium (Colace) 100 mg PO BID [facility] Last Admin: 08/14/18 09:22 Dose: 100 mg Enoxaparin Sodium (Lovenox) 40 mg SC DAILY [facility]; Protocol Last Admin: 08/14/18 09:20 Dose: 40 mg Hydromorphone HCl (Dilaudid) 0.5 mg IVP Q6H PRN PRN Reason: Pain, severe (8-10) Stop: 08/14/18 15:22 Last Admin: 08/14/18 03:50 Dose: 0.5 mg Metronidazole 250 mg/ (Miscellaneous) 50 mls @ 50 mls/hr IVPB Q8 [facility]; Protocol Last Admin: 08/14/18 09:25 Dose: 50 mls/hr Levofloxacin/Dextrose (Levaquin 750mg) 750 mg in 150 mls @ 100 mls/hr IVPB DAILY [facility] Last Admin: 08/14/18 09:25 Dose: 100 mls/hr Metoclopramide HCl (Reglan) 5 mg PO ACHS [facility] Last Admin: 08/14/18 11:14 Dose: 5 mg Ondansetron HCl (Zofran Inj) 4 mg IVP Q4 PRN PRN Reason: Nausea/Vomiting Last Admin: 08/14/18 14:15 Dose: 4 mg Oxycodone/Acetaminophen (Percocet 5/325 Mg Tab) 1 tab PO Q6 PRN PRN Reason: Pain, moderate (4-7) Stop: 08/15/18 11:44 Pantoprazole Sodium (Protonix Inj) 40 mg IVP DAILY [facility] Last Admin: 08/14/18 09:26 Dose: 40 mg Psyllium Hydrophilic Mucilloid (Hydrocil Instant) 1 pkt PO BID [facility] Last Admin: 08/14/18 09:31 Dose: Not Given Simethicone (Mylicon Chew Tab) 80 mg PO [facility] PRN PRN Reason: Flatulence - Labs Labs: 08/14/18 09:43 08/13/18 05:24 PT 14.9 Seconds (9.8-13.1) H 08/10/18 09:34 INR 1.3 08/10/18 09:34 APTT 33.6 Seconds (25.6-37.1) 08/10/18 09:34
[2018-08-14] MEDS: Alum-Mag Hydrox-Simethicone Susp (30 mL) PO PRN (16:27)
[2018-08-15] MEDS: metroNIDAZOLE 500mg/100ml NS 250 MG in Premixed IV 1 EA IVPB SCH ×3 (00:05→17:07)
[2018-08-15] MEDS: Alum-Mag Hydrox-Simethicone Susp (30 mL) PO PRN (03:38)
[2018-08-15 06:27] LABS: HEMOGLOBIN 12.9 g/dL (12.0-18.0); MEAN CORPUSCULAR HEMOGLOBIN 28.1 pg (27.0-31.0); MEAN CORPUSCULAR HGB CONC 32.7 g/dL (33.0-37.0); RBC 4.58 Mil/uL (4.40-5.90); RED CELL DISTRIBUTION WIDTH 15.3 % (11.5-14.5); WHITE BLOOD COUNT 11.1 K/uL (4.8-10.8)
[2018-08-15 06:41] LABS: ALB/GLOB RATIO 0.8 (1.0-2.1); ALBUMIN 2.9 g/dL (3.5-5.0); ALT/SGPT 29 U/L (21-72); AST/SGOT 24 U/L (17-59); BLOOD UREA NITROGEN 5 mg/dl (9-20); CALCIUM 8.7 mg/dL (8.4-10.2); GFR NON-AFRICAN AMERICAN > 60
[2018-08-15] MEDS: Psyllium Packet PO SCH ×2 (08:31→16:41)
[2018-08-15] MEDS: Enoxaparin 40 mg Syringe SC SCH (08:32)
[2018-08-15] MEDS: levoFLOXacin 750 mg in D5W 750 MG/150 ML BAG IVPB SCH (08:32)
--- NOTE | 2018-08-15 11:19 | CP.PCM.PN ---
Subjective - Date & Time of Evaluation Date of Evaluation: 08/15/18 Time of Evaluation: 09:45 - Subjective Subjective: General Surgery progress note Dr. Ortega Patient seen and examined this am at bedside. Patient continues to have n/v overnight with hiccups. He denies flatus or BM overnight as well as abdominal pain or bloating. He otherwise denies ANAND, CP, SOB and extremity pain or weakness. Objective - Vital Signs/Intake and Output Vital Signs (last 24 hours): Temp Pulse Resp BP Pulse Ox 97.7 F 100 H 20 132/87 95 08/15/18 07:46 08/15/18 07:46 08/15/18 07:46 08/15/18 07:46 08/15/18 07:46 Intake and Output: 08/15/18 08/15/18 06:59 18:59 Output Total 220 Balance -220 - Medications Medications: Current Medications Acetaminophen (Tylenol 325mg Tab) 650 mg PO Q4 PRN PRN Reason: Fever >100.4 F Al Hydrox/Mg Hydrox/Simethicone (Maalox Plus 30 Ml) 30 ml PO DAILY PRN PRN Reason: Heartburn Last Admin: 08/15/18 03:38 Dose: 30 ml Chlorpromazine (Thorazine) 10 mg PO Q12 [facility] Last Admin: 08/15/18 08:34 Dose: 10 mg Diphenhydramine HCl (Benadryl) 50 mg PO Q6 PRN PRN Reason: Itching / Pruritus Last Admin: 08/08/18 17:22 Dose: 50 mg Docusate Sodium (Colace) 100 mg PO BID [facility] Last Admin: 08/15/18 08:31 Dose: 100 mg Enoxaparin Sodium (Lovenox) 40 mg SC DAILY [facility]; Protocol Last Admin: 08/15/18 08:32 Dose: 40 mg Metronidazole 250 mg/ (Miscellaneous) 50 mls @ 50 mls/hr IVPB Q8 [facility]; Protocol Last Admin: 08/15/18 08:31 Dose: 50 mls/hr Levofloxacin/Dextrose (Levaquin 750mg) 750 mg in 150 mls @ 100 mls/hr IVPB DAILY [facility] Last Admin: 08/15/18 08:32 Dose: 100 mls/hr Metoclopramide HCl (Reglan) 5 mg PO ACHS [facility] Last Admin: 08/15/18 08:33 Dose: 5 mg Ondansetron HCl (Zofran Inj) 4 mg IVP Q4 PRN PRN Reason: Nausea/Vomiting Last Admin: 08/15/18 08:37 Dose: 4 mg Pantoprazole Sodium (Protonix Inj) 40 mg IVP DAILY [facility] Last Admin: 08/15/18 08:31 Dose: 40 mg Psyllium Hydrophilic Mucilloid (Hydrocil Instant) 1 pkt PO BID [facility] Last Admin: 08/15/18 08:31 Dose: Not Given Simethicone (Mylicon Chew Tab) 80 mg PO HS PRN PRN Reason: Flatulence - Labs Labs: 08/15/18 05:45 08/15/18 05:45 PT 14.9 Seconds (9.8-13.1) H 08/10/18 09:34 INR 1.3 08/10/18 09:34 APTT 33.6 Seconds (25.6-37.1) 08/10/18 09:34 - Constitutional Appears: Well, Non-toxic, No Acute Distress - Head Exam Head Exam: ATRAUMATIC, NORMOCEPHALIC - Eye Exam Eye Exam: EOMI - ENT Exam ENT Exam: Mucous Membranes Moist - Respiratory Exam Respiratory Exam: NORMAL BREATHING PATTERN - Cardiovascular Exam Cardiovascular Exam: REGULAR RHYTHM - GI/Abdominal Exam GI & Abdominal Exam: Soft. absent: Distended, Guarding, Tenderness Additional comments: incision clean and dry with jarett in place, packing changed, drain sites CDI, overnight left drain 60, right pigtail 20, right lower drain 140 - Neurological Exam Neurological Exam: Alert, Awake, Oriented x3 - Psychiatric Exam Psychiatric exam: Normal Affect, Normal Mood - Skin Skin Exam: Dry, Normal Color, Warm Assessment and Plan - Assessment and Plan (Free Text) Assessment: 58 yr old male s/p hepatic abscess unroofing POD 5 Plan: NPO IVF continue abx d/c opioids monitor drain output will continue to follow d/w Dr. Jordan Berman, PGY 1
--- NOTE | 2018-08-15 11:59 | RAD ---
Date of service: 08/15/2018 HISTORY: Nausea/Vomiting Relevant interventional procedure(s): 08/08/2018 perihepatic abscess drainage. COMPARISON: 08/13/2018 CT abdomen and pelvis. FINDINGS: BOWEL: Interval improvement in small bowel dilatation compared to the prior CT scan 08/13/2018. BONES: Degenerative changes both hips. OTHER FINDINGS: Perihepatic pigtail abscess catheters identified in the perihepatic space. Additional surgical drain identified right upper quadrant. IMPRESSION: Right upper quadrant pigtail catheter identified. Interval improvement in dilatation of proximal small bowel compared to prior CT scan.
--- NOTE | 2018-08-15 12:00 | CP.PCM.PN ---
Subjective - Date & Time of Evaluation Date of Evaluation: 08/15/18 Time of Evaluation: 12:00 - Subjective Subjective: Patient seen and examined at bedside, continues to have n/v overnight with hiccups. No abdominal pain, also he denies flatus and states last BM last week. Objective - Vital Signs/Intake and Output Vital Signs (last 24 hours): Temp Pulse Resp BP Pulse Ox 97.7 F 100 H 20 132/87 95 08/15/18 07:46 08/15/18 07:46 08/15/18 07:46 08/15/18 07:46 08/15/18 07:46 Intake and Output: 08/15/18 08/15/18 06:59 18:59 Output Total 220 Balance -220 - Medications Medications: Current Medications Acetaminophen (Tylenol 325mg Tab) 650 mg PO Q4 PRN PRN Reason: Fever >100.4 F Al Hydrox/Mg Hydrox/Simethicone (Maalox Plus 30 Ml) 30 ml PO DAILY PRN PRN Reason: Heartburn Last Admin: 08/15/18 03:38 Dose: 30 ml Chlorpromazine (Thorazine) 10 mg PO Q12 [facility] Last Admin: 08/15/18 08:34 Dose: 10 mg Diphenhydramine HCl (Benadryl) 50 mg PO Q6 PRN PRN Reason: Itching / Pruritus Last Admin: 08/08/18 17:22 Dose: 50 mg Docusate Sodium (Colace) 100 mg PO BID [facility] Last Admin: 08/15/18 08:31 Dose: 100 mg Enoxaparin Sodium (Lovenox) 40 mg SC DAILY [facility]; Protocol Last Admin: 08/15/18 08:32 Dose: 40 mg Metronidazole 250 mg/ (Miscellaneous) 50 mls @ 50 mls/hr IVPB Q8 [facility]; Protocol Last Admin: 08/15/18 08:31 Dose: 50 mls/hr Levofloxacin/Dextrose (Levaquin 750mg) 750 mg in 150 mls @ 100 mls/hr IVPB DAILY [facility] Last Admin: 08/15/18 08:32 Dose: 100 mls/hr Dextrose/Lactated Ringer's (Dextrose 5%/Lactated Ringer's) 1,000 mls @ 150 mls/hr IV .Q6H40M [facility] Stop: 08/16/18 11:46 Metoclopramide HCl (Reglan) 5 mg PO ACHS [facility] Last Admin: 08/15/18 08:33 Dose: 5 mg Ondansetron HCl (Zofran Inj) 4 mg IVP Q4 PRN PRN Reason: Nausea/Vomiting Last Admin: 08/15/18 08:37 Dose: 4 mg Pantoprazole Sodium (Protonix Inj) 40 mg IVP DAILY [facility] Last Admin: 08/15/18 08:31 Dose: 40 mg Psyllium Hydrophilic Mucilloid (Hydrocil Instant) 1 pkt PO BID [facility] Last Admin: 08/15/18 08:31 Dose: Not Given Simethicone (Mylicon Chew Tab) 80 mg PO PCHS PRN PRN Reason: Flatulence - Labs Labs: 08/15/18 05:45 08/15/18 05:45 PT 14.9 Seconds (9.8-13.1) H 08/10/18 09:34 INR 1.3 08/10/18 09:34 APTT 33.6 Seconds (25.6-37.1) 08/10/18 09:34 - Constitutional Appears: No Acute Distress - Head Exam Head Exam: NORMAL INSPECTION - Respiratory Exam Respiratory Exam: Clear to Ausculation Bilateral, NORMAL BREATHING PATTERN - Cardiovascular Exam Cardiovascular Exam: REGULAR RHYTHM, +S1, +S2. absent: Tachycardia - GI/Abdominal Exam GI & Abdominal Exam: Soft. absent: Distended, Tenderness Additional comments: Drain sites are clean, dry and intact, ZULEYMA draining appropriately, incision clean and dry with intact jarett - Extremities Exam Extremities Exam: absent: Calf Tenderness, Pedal Edema - Neurological Exam Neurological Exam: Alert, Awake, Oriented x3 - Skin Skin Exam: Dry, Warm Assessment and Plan - Assessment and Plan (Free Text) Assessment: 58 yo M admitted with liver abscess s/p abscess debridement and omentopexy, POD 5 Plan: - IV abx for 1 week per ID - Encourage OOBTC and Ambulation - monitor drain outputs - Nausea control and pain control - CBC stable - f/u Abd XR - rest of plan as ordered case seen and examined with Dr Fermin.
[2018-08-15] MEDS: Dextrose 5%/Lactated Ringer's 1,000 ML IV SCH ×2 (12:36→19:44)
[2018-08-15] MEDS ORDERED: Chlorhexidine Gluconate 1 APPL/PKT TP ONE (14:38)
[2018-08-16] MEDS: metroNIDAZOLE 500mg/100ml NS 250 MG in Premixed IV 1 EA IVPB SCH ×3 (00:03→17:20)
[2018-08-16] MEDS: Alum-Mag Hydrox-Simethicone Susp (30 mL) PO PRN ×2 (00:06→01:34)
[2018-08-16] MEDS: Dextrose 5%/Lactated Ringer's 1,000 ML IV SCH ×2 (01:54→09:30)
--- NOTE | 2018-08-16 07:32 | OP ---
PROCEDURE DATE: 08/10/2018 PREOPERATIVE DIAGNOSIS: Liver abscess. POSTOPERATIVE DIAGNOSIS: Liver abscess. SURGERIES: 1. Exploratory laparotomy. 2. Extensive enterolysis. 3. Incision and drainage of liver abscess. 4. Excisional debridement of liver abscess. 5. Hepatotomy for open drainage of liver abscess. 6. Partial liver resection. 7. Cholecystectomy. 8. Mobilization of splenic flexure. 9. Omental flap. 10. Bilateral transversus abdominis plane block anesthesia. 11. Marsupialization of liver abscess. SURGEON: Deo Ortega MD, PhD, FACS ANESTHESIA: General endotracheal. WOUND CLASSIFICATION: Contaminated. ANTIBIOTIC PROPHYLAXIS: Yes. SPECIMENS SENT: Omental gallbladder, liver abscess, wall and segments of liver to Pathology. COMPLICATIONS: None. DRAINS AND TUBES: Two #10 ZULEYMA flat drains. HARDWARE IMPLANTS: None. BLOOD LOSS: Approximately 100 mL. INTRAVENOUS FLUIDS: 4 L of Ringer's lactate. POSTOPERATIVE CONDITION: Stable, extubated to the recovery room. CLINICAL INFORMATION: Mr. Camargo is a 58-year-old patient who is coming from [place] who felt vague abdominal pain, malaise, low-grade fevers and chills for the last week which progressively became worse with fainting intense, and the patient's condition is deteriorating and developing fever. We checked in the [facility] Emergency Room on 08/04/2018 and workup including blood tests indicated that the patient has elevated white blood cell count and his temperature was elevated as well. He had a CT scan of the abdominal and pelvis which showed a very large 18 x 15 x 12 cm right-sided liver abscess. The patient on clinical exam had a fullness in the right upper quadrant as well as tenderness and guarding. Based on these findings, diagnosis of a liver abscess was made of unclear etiology, suspect it could be from diverticulitis because of the patient's history of the diverticulitis. The patient was admitted for conservative management with bowel rest, IV antibiotics and monitoring his serial abdominal exams and monitoring his lab values. Next day, the patient was taken to the Interventional Radiology, and the radiologist aspirated approximately 1 L of pus from the liver abscess. They did not leave a drain making the argument that the abscess cavity was large and septated, therefore the value of a drain would be limited. The patient's condition improved temporary, but within 24 hours, the patient developed again elevated white blood cell count, low-grade fever, and recurrent abdominal pain and malaise. Based on the failure of conservative management, it was decided to perform a surgery. Of note that before the surgery, the patient underwent renewed aspiration and drainage of the gallbladder and placement of an 8-Indonesian pigtail catheter which drained before the surgery approximately 750 mL of pus. INTRAOPERATIVE FINDINGS: The patient had a very large abscess cavity, originating from segments 4b, 5 and 6 of the liver and appearing to the falciform ligament as well as the anterior upper abdominal wall and the right diaphragm and its abscess wall and also transverse colon, duodenum and the stomach involved. In the abscess cavity, we transfused with the gallbladder wall. Apparently, there were three stones. Gallstones were identified and removed. DESCRIPTION OF THE SURGERY: The patient was brought into the operating room, placed on the operating table in supine position. After smooth induction of general endotracheal anesthesia, Venodyne boots were placed in both legs and prophylactic IV antibiotics were given. The abdomen was prepped and draped in the usual sterile fashion. The area in the right subcostal margin approximately 1 fingerbreadth below the costal margin was infiltrated with local anesthetic, which comprised of 0.5% Marcaine and 1% lidocaine with epinephrine in equal volumes. A #10 blade was used to perform a right subcostal incision of 1 fingerbreadth below the ribcage from the subxiphoid region all the way to the right lateral line. The incision was brought down subcutaneous tissue using Bovie electrocautery. The abdominal wall muscle and fascia were incised with Bovie electrocautery in a gradual fashion ensuring there was no evidence of bleeding of muscles. The transversus abdominis muscle and peritoneum were incised, and the peritoneal cavity was accessed. A Bookwalter rectractor was placed for better exposure. Then, the intra-abdominal adhesions were encountered. It took approximately 1 hour with sharp and blunt fashion in a very meticulous dissection process to take down the adhesions without sustaining any collateral damage. The liver abscess cavity which appeared to be partial decompressed with the vessels very in composite of segments of 4b, 5 and 6 of the right lobe of the liver and part of the left lobe of liver involved the falciform ligament, anterior abdominal wall as well as the right hemidiaphragm and parts of the transverse colon with duodenum and the stomach. There was evidence of reactive cloudy almost purulent fluid in the abdomen, mostly in the right subdiaphragmatic and right paracolic gutters. The dissection continued until the tip of the free ends of the liver abscess which was removed essentially unroofing dislodged abscess cavity and resecting part of the liver that appeared mostly on the right lobe of the liver, which appeared to be nonviable or compromised vascular supply or anatomic integrity. The abscess cavity necrotic tissue was encountered of the inside of the abscess wall and which was debrided in a sharp and blunt fashion until backbleeding was encountered from the liver bed. The depths of this biopsy cavity which accomplished the gallbladder which was also removed. There were three large approximately 1 x 1 cm gallstones which were removed and sent to Pathology for confirmation. The dissection continued until all the dependent capsular abscess has been completely removed with appropriate healthy looking liver edge in a circumferential fashion. The abscess cavity was irrigated with warm normal saline, 3 L. The irrigant was aspirated completely. The bleeders were easily controlled with Bovie electrocautery and application of Surgicel to the depth of the abscess cavity bed. The omentum was mobilized from the splenic flexure which was completed to ensure of adequate length and size of the omentum for the planned omentopexy. The omentum was freed from its attachments to the transverse colon from the splenic flexure all the way to the hepatic flexure. The attachments from the greater curvature of the stomach were secured with a 10-mm LigaSure after the level of the right gastroduodenal artery and right paracolic gutter which was preserved. The flap was rotated in 180 degrees and placed in depths of the remnant abscess cavity and secured in place by interrupted 0 silk stitches which were placed in the Atif's capsule of the liver as well as remnant abscess cavity wall. It was confirmed that the omentum was in the right place and was viable, thus performing marsupialization of the liver abscess cavity. Two #10 ZULEYMA drains were placed on each side of the incision approximately 1 inch away from the edge of the incision, and they were placed deep within the abscess cavity on each side of the omental flap and secured to the skin using a 2-0 silk stitch. The pigtail catheter was left in place and has been functional patent. The abdominal wound was closed in two layers using interrupted inverted #1 PDS for the fascia and muscles of the abdominal wall at approximately 0.5 inch distance and the skin was closed usually with jarett approximately 0.5 inch apart in the opening between the jarett packed with 1 inch iodoform gauze, which was advanced gently all the way down to the newly construct fascia. Sterile dressings were applied. Sono-guided bilateral transversus abdominis plane block anesthesia was performed by using a small part of SonoSite probe and scanning the area superiorly and inferiorly to the incision injecting approximately 40 mL of 0.5% Marcaine at the transverse abdominis plane in four different locations ensuring that there was adequate pain control from this anesthesia. At the end of the surgery, the counts of the instruments, gauze, and needles were correct x2. The patient tolerated the surgery well and was transferred in stable condition to the recovery room. Deo Ortega MD, PhD, FACS [email or web address]
--- NOTE | 2018-08-16 08:00 | CP.PCM.PN ---
Subjective - Date & Time of Evaluation Date of Evaluation: 08/16/18 Time of Evaluation: 07:57 - Subjective Subjective: Surgery Pt seen and examined. Vomited bilious output. yesterday and today. Denies flatus or BM. No pain. Ambulates. Voiding. Objective - Vital Signs/Intake and Output Vital Signs (last 24 hours): Temp Pulse Resp BP Pulse Ox 97.3 F L 92 H 18 144/88 99 08/16/18 01:00 08/16/18 01:00 08/16/18 01:00 08/16/18 01:00 08/16/18 01:00 - Medications Medications: Current Medications Acetaminophen (Tylenol 325mg Tab) 650 mg PO Q4 PRN PRN Reason: Fever >100.4 F Al Hydrox/Mg Hydrox/Simethicone (Maalox Plus 30 Ml) 30 ml PO DAILY PRN PRN Reason: Heartburn Last Admin: 08/16/18 01:34 Dose: 30 ml Chlorpromazine (Thorazine) 10 mg PO Q12 [facility] Last Admin: 08/15/18 21:34 Dose: 10 mg Diphenhydramine HCl (Benadryl) 50 mg PO Q6 PRN PRN Reason: Itching / Pruritus Last Admin: 08/08/18 17:22 Dose: 50 mg Docusate Sodium (Colace) 100 mg PO BID [facility] Last Admin: 08/15/18 16:40 Dose: 100 mg Enoxaparin Sodium (Lovenox) 40 mg SC DAILY [facility]; Protocol Last Admin: 08/15/18 08:32 Dose: 40 mg Home Med (Patient's Own Medication) 1 unit PO BID [facility] Metronidazole 250 mg/ (Miscellaneous) 50 mls @ 50 mls/hr IVPB Q8 [facility]; Protocol Last Admin: 08/16/18 00:03 Dose: 50 mls/hr Levofloxacin/Dextrose (Levaquin 750mg) 750 mg in 150 mls @ 100 mls/hr IVPB DAILY [facility] Last Admin: 08/15/18 08:32 Dose: 100 mls/hr Dextrose/Lactated Ringer's (Dextrose 5%/Lactated Ringer's) 1,000 mls @ 150 mls/hr IV .Q6H40M [facility] Stop: 08/16/18 11:46 Last Admin: 08/16/18 01:54 Dose: 150 mls/hr Metoclopramide HCl (Reglan) 5 mg PO ACHS [facility] Last Admin: 08/15/18 21:34 Dose: 5 mg Ondansetron HCl (Zofran Inj) 4 mg IVP Q4 PRN PRN Reason: Nausea/Vomiting Last Admin: 08/16/18 06:36 Dose: 4 mg Pantoprazole Sodium (Protonix Inj) 40 mg IVP DAILY [facility] Last Admin: 08/15/18 08:31 Dose: 40 mg Simethicone (Mylicon Chew Tab) 80 mg PO PCHS PRN PRN Reason: Flatulence - Labs Labs: 08/15/18 05:45 08/15/18 05:45 PT 14.9 Seconds (9.8-13.1) H 08/10/18 09:34 INR 1.3 08/10/18 09:34 APTT 33.6 Seconds (25.6-37.1) 08/10/18 09:34 - Constitutional Appears: No Acute Distress - Head Exam Head Exam: ATRAUMATIC, NORMAL INSPECTION, NORMOCEPHALIC - Eye Exam Eye Exam: EOMI, Normal appearance, PERRL Pupil Exam: NORMAL ACCOMODATION, PERRL - ENT Exam ENT Exam: Mucous Membranes Moist - Neck Exam Neck Exam: Normal Inspection - Respiratory Exam Respiratory Exam: NORMAL BREATHING PATTERN - Cardiovascular Exam Cardiovascular Exam: REGULAR RHYTHM - GI/Abdominal Exam GI & Abdominal Exam: Soft. absent: Distended, Firm, Guarding, Rigid, Tenderness Additional comments: Incision clean, stapled. Dressing changed. Drains in place 50cc ss each/8hrs. - Exam Exam: NORMAL INSPECTION - Extremities Exam Extremities Exam: Full ROM - Back Exam Back Exam: NORMAL INSPECTION - Neurological Exam Neurological Exam: Alert, Awake, CN II-XII Intact, Normal Gait, Oriented x3 - Psychiatric Exam Psychiatric exam: Normal Affect, Normal Mood - Skin Skin Exam: Normal Color, Warm. absent: Erythema Assessment and Plan - Assessment and Plan (Free Text) Assessment: 58 yr old male s/p hepatic abscess unroofing POD 6 Plan: NPO IVF continue abx d/c opioids monitor drain output will continue to follow Enema CT tomorrow w gastrograpfin if doesn't improve. d/w Dr. Ortega
[2018-08-16 08:26] LABS: BASO % 0.2 % (0.0-2.0); EOS # 0.2 K/uL (0.0-0.7); EOS % 2.5 % (0.0-4.0); HEMOGLOBIN 12.3 g/dL (12.0-18.0); LYMPH # 0.8 K/uL (1.0-4.3); LYMPH % 7.9 % (20.0-40.0); MEAN CELL VOLUME 86.7 fl (80.0-94.0); MEAN CORPUSCULAR HEMOGLOBIN 28.6 pg (27.0-31.0); MEAN PLATELET VOLUME 6.8 fl (7.2-11.7); MONO # 0.9 K/uL (0.0-0.8); MONO % 9.5 % (0.0-10.0); NEUT # 7.8 K/uL (1.8-7.0); NEUT % 79.9 % (50.0-75.0); NRBC % 0.1 % (0.0-0.0); RBC 4.29 Mil/uL (4.40-5.90); RED CELL DISTRIBUTION WIDTH 15.3 % (11.5-14.5); WHITE BLOOD COUNT 9.7 K/uL (4.8-10.8)
[2018-08-16 08:32] LABS: ALB/GLOB RATIO 0.8 (1.0-2.1); ALBUMIN 2.7 g/dL (3.5-5.0); ALT/SGPT 24 U/L (21-72); AST/SGOT 25 U/L (17-59); BLOOD UREA NITROGEN 3 mg/dl (9-20); CALCIUM 8.6 mg/dL (8.4-10.2); GFR NON-AFRICAN AMERICAN > 60
[2018-08-16] MEDS: DAILY FIBER PO SCH ×2 (09:30→17:01)
[2018-08-16] MEDS: Enoxaparin 40 mg Syringe SC SCH (09:31)
[2018-08-16] MEDS ORDERED: Potassium Chloride 20 MEQ in Dextrose 5%/Lactated Ringer's 1,000 ML IV SCH (09:59)
[2018-08-16] MEDS ORDERED: Potassium Ch 20mEq in D5-1/2NS 1,000 ML IV SCH (10:30)
[2018-08-16] MEDS: levoFLOXacin 750 mg in D5W 750 MG/150 ML BAG IVPB SCH (11:35)
[2018-08-16] MEDS: Potassium Chloride 20 MEQ in Dextrose 5%/0.45% NS 1,000 ML IV SCH ×2 (22:15→23:18)
[2018-08-17] MEDS: metroNIDAZOLE 500mg/100ml NS 250 MG in Premixed IV 1 EA IVPB SCH ×3 (00:03→16:35)
[2018-08-17] MEDS: Potassium Chloride 20 MEQ in Dextrose 5%/0.45% NS 1,000 ML IV SCH ×4 (04:59→22:12)
--- NOTE | 2018-08-17 08:24 | CP.PCM.PN ---
Subjective - Date & Time of Evaluation Date of Evaluation: 08/17/18 Time of Evaluation: 08:22 - Subjective Subjective: Surgery PT seen and examined. No acute events. Had BM. Denies nausea, vomiting. drain putting out scant amount of fluids. Voiding. Denies fever, pain. OOB Objective - Vital Signs/Intake and Output Vital Signs (last 24 hours): Temp Pulse Resp BP Pulse Ox 97.9 F 80 18 135/84 95 08/17/18 00:33 08/17/18 00:33 08/17/18 00:33 08/17/18 00:33 08/17/18 00:33 Intake and Output: 08/17/18 08/17/18 06:59 18:59 Output Total 730 Balance -730 - Medications Medications: Current Medications Acetaminophen (Tylenol 325mg Tab) 650 mg PO Q4 PRN PRN Reason: Fever >100.4 F Al Hydrox/Mg Hydrox/Simethicone (Maalox Plus 30 Ml) 30 ml PO DAILY PRN PRN Reason: Heartburn Last Admin: 08/16/18 01:34 Dose: 30 ml Chlorpromazine (Thorazine) 10 mg PO Q12 [facility] Last Admin: 08/16/18 21:19 Dose: 10 mg Diphenhydramine HCl (Benadryl) 50 mg PO Q6 PRN PRN Reason: Itching / Pruritus Last Admin: 08/08/18 17:22 Dose: 50 mg Docusate Sodium (Colace) 100 mg PO BID [facility] Last Admin: 08/16/18 17:01 Dose: 100 mg Enoxaparin Sodium (Lovenox) 40 mg SC DAILY [facility]; Protocol Last Admin: 08/16/18 09:31 Dose: 40 mg Home Med (Patient's Own Medication) 1 unit PO BID [facility] Last Admin: 08/16/18 17:01 Dose: 1 unit Metronidazole 250 mg/ (Miscellaneous) 50 mls @ 50 mls/hr IVPB Q8 [facility]; Protocol Last Admin: 08/17/18 00:03 Dose: 50 mls/hr Levofloxacin/Dextrose (Levaquin 750mg) 750 mg in 150 mls @ 100 mls/hr IVPB DAILY [facility] Last Admin: 08/16/18 11:35 Dose: 100 mls/hr Potassium Chloride 20 meq/ (Dextrose/Sodium Chloride) 1,010 mls @ 150 mls/hr IV .Q6H44M [facility] Last Admin: 08/17/18 04:59 Dose: Not Given Metoclopramide HCl (Reglan) 5 mg PO ACHS [facility] Last Admin: 08/16/18 21:19 Dose: 5 mg Ondansetron HCl (Zofran Inj) 4 mg IVP Q4 PRN PRN Reason: Nausea/Vomiting Last Admin: 08/16/18 06:36 Dose: 4 mg Pantoprazole Sodium (Protonix Inj) 40 mg IVP DAILY [facility] Last Admin: 08/16/18 09:30 Dose: 40 mg Simethicone (Mylicon Chew Tab) 80 mg PO PCHS PRN PRN Reason: Flatulence - Labs Labs: 08/16/18 08:17 08/16/18 08:17 PT 14.9 Seconds (9.8-13.1) H 08/10/18 09:34 INR 1.3 08/10/18 09:34 APTT 33.6 Seconds (25.6-37.1) 08/10/18 09:34 - Constitutional Appears: In Acute Distress - Head Exam Head Exam: ATRAUMATIC, NORMAL INSPECTION, NORMOCEPHALIC - Eye Exam Eye Exam: EOMI, Normal appearance, PERRL Pupil Exam: NORMAL ACCOMODATION, PERRL - ENT Exam ENT Exam: Mucous Membranes Moist, Normal Exam - Neck Exam Neck Exam: Full ROM, Normal Inspection. absent: Lymphadenopathy - Respiratory Exam Respiratory Exam: NORMAL BREATHING PATTERN - Cardiovascular Exam Cardiovascular Exam: REGULAR RHYTHM - GI/Abdominal Exam GI & Abdominal Exam: Soft. absent: Distended, Firm Additional comments: Abd soft, Incision stapled. Minimal drainage. No erythema. - Rectal Exam Rectal Exam: NORMAL INSPECTION - Exam Exam: NORMAL INSPECTION - Extremities Exam Extremities Exam: Full ROM - Neurological Exam Neurological Exam: Alert, Awake - Psychiatric Exam Psychiatric exam: Normal Affect, Normal Mood - Skin Skin Exam: Dry, Warm Assessment and Plan - Assessment and Plan (Free Text) Assessment: 58 yr old male s/p hepatic abscess unroofing POD 7 Plan: Advance diet as tolerated IVF continue abx monitor drain output. May remove one drain before DC. Clear for DC to rehab for surgical standpoint will continue to follow d/w Dr. Ortega
[2018-08-17 08:38] LABS: BASO % 0.3 % (0.0-2.0); EOS # 0.5 K/uL (0.0-0.7); EOS % 5.5 % (0.0-4.0); HEMOGLOBIN 12.8 g/dL (12.0-18.0); LYMPH # 1.2 K/uL (1.0-4.3); LYMPH % 14.3 % (20.0-40.0); MEAN CELL VOLUME 85.7 fl (80.0-94.0); MEAN CORPUSCULAR HEMOGLOBIN 28.2 pg (27.0-31.0); MEAN CORPUSCULAR HGB CONC 32.9 g/dL (33.0-37.0); MONO # 0.9 K/uL (0.0-0.8); MONO % 10.2 % (0.0-10.0); NEUT % 69.7 % (50.0-75.0); RBC 4.55 Mil/uL (4.40-5.90); RED CELL DISTRIBUTION WIDTH 15.1 % (11.5-14.5); WHITE BLOOD COUNT 8.7 K/uL (4.8-10.8)
[2018-08-17 08:53] LABS: ALB/GLOB RATIO 0.8 (1.0-2.1); ALBUMIN 2.8 g/dL (3.5-5.0); ALT/SGPT 23 U/L (21-72); AST/SGOT 38 U/L (17-59); BLOOD UREA NITROGEN 2 mg/dl (9-20); CALCIUM 8.3 mg/dL (8.4-10.2); GFR NON-AFRICAN AMERICAN > 60
[2018-08-17 09:05] VITALS: RESP 20
[2018-08-17] MEDS: DAILY FIBER PO SCH ×2 (09:54→16:33)
[2018-08-17] MEDS: Simethicone 80 mg Chewtab PO PRN ×2 (09:57→21:54)
[2018-08-17] MEDS: levoFLOXacin 750 mg in D5W 750 MG/150 ML BAG IVPB SCH (10:05)
[2018-08-17] MEDS: Enoxaparin 40 mg Syringe SC SCH (10:11)
[2018-08-18] MEDS: metroNIDAZOLE 500mg/100ml NS 250 MG in Premixed IV 1 EA IVPB SCH ×2 (00:26→09:15)
[2018-08-18] MEDS: Potassium Chloride 20 MEQ in Dextrose 5%/0.45% NS 1,000 ML IV SCH ×2 (06:08→09:29)
[2018-08-18 07:39] VITALS: BP 136/90; PULSE 93; TEMP 98.2; O2SAT 95
--- NOTE | 2018-08-18 07:53 | CP.PCM.PN ---
Subjective - Date & Time of Evaluation Date of Evaluation: 08/18/18 Time of Evaluation: 07:51 - Subjective Subjective: Surgery Progress note. Dr. Ortega service Pt seen and examined at bedside. Patient had an episode of emesis yesterday evening. Plan for discharge to rehab held. Patient states that he had the best night last night and did not have any more episodes of nausea. Denies any other new complaints. Objective - Vital Signs/Intake and Output Vital Signs (last 24 hours): Temp Pulse Resp BP Pulse Ox 98.2 F 93 H 20 136/90 95 08/18/18 07:39 08/18/18 07:39 08/18/18 07:39 08/18/18 07:39 08/18/18 07:39 Intake and Output: 08/18/18 08/18/18 06:59 18:59 Intake Total 1600 Output Total 125 Balance 1475 - Medications Medications: Current Medications Acetaminophen (Tylenol 325mg Tab) 650 mg PO Q4 PRN PRN Reason: Fever >100.4 F Al Hydrox/Mg Hydrox/Simethicone (Maalox Plus 30 Ml) 30 ml PO DAILY PRN PRN Reason: Heartburn Last Admin: 08/16/18 01:34 Dose: 30 ml Chlorpromazine (Thorazine) 10 mg PO Q12 [facility] Last Admin: 08/17/18 21:54 Dose: 10 mg Diphenhydramine HCl (Benadryl) 50 mg PO Q6 PRN PRN Reason: Itching / Pruritus Last Admin: 08/08/18 17:22 Dose: 50 mg Docusate Sodium (Colace) 100 mg PO BID [facility] Last Admin: 08/17/18 16:35 Dose: 100 mg Enoxaparin Sodium (Lovenox) 40 mg SC DAILY [facility]; Protocol Last Admin: 08/17/18 10:11 Dose: 40 mg Home Med (Patient's Own Medication) 1 unit PO BID [facility] Last Admin: 08/17/18 16:33 Dose: 1 unit Metronidazole 250 mg/ (Miscellaneous) 50 mls @ 50 mls/hr IVPB Q8 [facility]; Protocol Last Admin: 08/18/18 00:26 Dose: 50 mls/hr Levofloxacin/Dextrose (Levaquin 750mg) 750 mg in 150 mls @ 100 mls/hr IVPB DAILY [facility] Last Admin: 08/17/18 10:05 Dose: 100 mls/hr Potassium Chloride 20 meq/ (Dextrose/Sodium Chloride) 1,010 mls @ 150 mls/hr IV .Q6H44M [facility] Last Admin: 08/18/18 06:08 Dose: 150 mls/hr Metoclopramide HCl (Reglan) 5 mg PO ACHS [facility] Last Admin: 08/17/18 21:54 Dose: 5 mg Ondansetron HCl (Zofran Inj) 4 mg IVP Q4 PRN PRN Reason: Nausea/Vomiting Last Admin: 08/17/18 19:53 Dose: 4 mg Pantoprazole Sodium (Protonix Inj) 40 mg IVP DAILY [facility] Last Admin: 08/17/18 10:12 Dose: 40 mg Simethicone (Mylicon Chew Tab) 80 mg PO PCHS PRN PRN Reason: Flatulence Last Admin: 08/17/18 21:54 Dose: 80 mg - Labs Labs: 08/17/18 08:32 08/17/18 08:32 PT 14.9 Seconds (9.8-13.1) H 08/10/18 09:34 INR 1.3 08/10/18 09:34 APTT 33.6 Seconds (25.6-37.1) 08/10/18 09:34 - Constitutional Appears: Well, Non-toxic, No Acute Distress - Head Exam Head Exam: ATRAUMATIC, NORMAL INSPECTION, NORMOCEPHALIC - Eye Exam Eye Exam: EOMI, Normal appearance - ENT Exam ENT Exam: Mucous Membranes Moist - Respiratory Exam Respiratory Exam: NORMAL BREATHING PATTERN. absent: Accessory Muscle Use, Respiratory Distress - Cardiovascular Exam Cardiovascular Exam: absent: JVD - GI/Abdominal Exam GI & Abdominal Exam: Soft. absent: Distended, Firm, Guarding, Tenderness, Rebound Additional comments: Incision clean, dry and intact. - Extremities Exam Extremities Exam: Normal Inspection. absent: Calf Tenderness - Neurological Exam Neurological Exam: Alert, Awake, Oriented x3 - Psychiatric Exam Psychiatric exam: Normal Affect, Normal Mood - Skin Skin Exam: Dry, Intact, Normal Color, Warm Assessment and Plan - Assessment and Plan (Free Text) Assessment: 58yo M s/p hepatic abscess unroofing. POD 8 Plan: - Advance diet as tolerated. - Patient is cleared for DC to rehab from surgical standpoint if he is tolerating diet - Continue Abx - Pain management - Antiemetics as needed - Monitor drain outputs Further recs as per Dr. Jordan Hood PGY2 Surgery
[2018-08-18] MEDS: levoFLOXacin 750 mg in D5W 750 MG/150 ML BAG IVPB SCH (09:16)
[2018-08-18] MEDS: Enoxaparin 40 mg Syringe SC SCH (09:27)
[2018-08-18] MEDS: DAILY FIBER PO SCH (09:28)
[2018-08-18] MEDS ORDERED: Simethicone 80 mg Chewtab PO PRN (11:09)
[2018-08-18] MEDS: Alum-Mag Hydrox-Simethicone Susp (30 mL) PO PRN (11:11)
== END 2018-08-18 15:15 | DRG 406 ==
LOC: H.ER 14:44 → H.ERHOLD 18:44 → H.MEDSURG1 20:56
PROVIDERS: ADMIT Family Medicine; ATTEND Family Medicine
PROC: 0F903ZZ Drainage of Liver, Percutaneous Approach (ICD-10-PCS; 2018-08-06)
PROC: 0F9030Z Drainage of Liver with Drainage Device, Percutaneous Approach (ICD-10-PCS; 2018-08-08)
PROC: 0F900ZZ Drainage of Liver, Open Approach (ICD-10-PCS; 2018-08-10)
PROC: 0FT40ZZ Resection of Gallbladder, Open Approach (ICD-10-PCS; 2018-08-10)
PROC: 0FB10ZZ Excision of Right Lobe Liver, Open Approach (ICD-10-PCS; principal; 2018-08-10 14:15)
DX: K75.0 Abscess of liver (principal); K80.10 Calculus of gallbladder with chronic cholecystitis without obstruction; K57.92 Diverticulitis of intestine, part unspecified, without perforation or abscess without bleeding; K76.89 Other specified diseases of liver; Z86.010 Personal history of colon polyps; Z88.0 Allergy status to penicillin; K44.9 Diaphragmatic hernia without obstruction or gangrene; K66.0 Peritoneal adhesions (postprocedural) (postinfection)